=== PATIENT | female | born 1995 | race Caucasian/White ===

== ENCOUNTER → 2017-10-25 06:55 | Outpatient (CLI) | payer OTHER, SELFPAY ==
[2017-10-25 07:52] LABS: Absolute Lymphocyte Count 2.44 X10^3/ul (0.83-4.51); Absolute Neutrophil Count 2.8 X10^3/uL (2.0-7.7); Basophil# 0.02 X10^3/uL; Basophil% 0.3 % (0-1); Eosinophil# 0.13 X10^3/uL; Eosinophils% 2.2 % (0-5); Hematocrit 44.2 % (37-47); Hemoglobin 15.1 g/dl (12.0-15.0); Lymphocyte # 2.44 X10^3/ul (4.0); Lymphocyte % 40.9 % (19-41); Mean Corp Hgb Conc 34.2 g/gl (32-36); Mean Corpuscular Hgb 31.7 pg (27.0-32.0); Mean Corpuscular Volume 92.9 fL (81-99); Monocyte# 0.54 X10^3/uL; Monocyte% 9.1 % (0-10); Neutrophil # 2.82 X10^3/uL (2.7-7.7); Neutrophil % 47.3 % (47-70); Platelet Count 221 K/mm3 (150-450); RBC Distribution Width CV 12.4 % (11.6-14.6); RBC Distribution Width SD 41.9 fl (35.1-43.9); Red Blood Count 4.76 M/mm3 (4.2-5.4)
[2017-10-25 07:58] LABS: ALB/GLOB Ratio 1.3 RATIO (0.9-2.4); AST(SGOT) 15 U/L (15-37); Alanine Aminotransfer ALT/SGPT 19 U/L (13-56); Albumin, Serum 3.9 g/dL (3.2-5.0); Alkaline Phosphatase 95 U/L (45-117); Anion Gap 7 (5-15); BUN 8 mg/dL (7-18); BUN/Creat Ratio 13.2 RATIO (10-20); Calcium,Total 8.7 mg/dL (8.5-10.1); Chloride 106 mmol/L (98-107); Creatinine, Serum 0.61 mg/dL (0.55-1.02); EST Glomerular Filtration Rate 134 mL/min (>60); Est Glom Filt Rate - Afr Amer 162 mL/min (>60); Globulin 3.1 g/dL (2.2-4.2); Glucose 80 mg/dL (74-106); Potassium 3.5 mmol/L (3.5-5.1); Sodium Level 139 mmol/L (136-145); Thyroid Stim Hormone (TSH) 2.79 uIU/mL (0.358-3.74)
[2017-10-25 08:02] LABS: POSITIVE COUNT NO; POSITIVE DIFFERENTIAL NO; POSITIVE MORPHOLOGY NO
[2017-10-25 08:16] LABS: Microalbumin:Creatinine Ratio 7.6 mg/g CRE (<30 mg/g CRE)
== END ==
PROVIDERS: Family Provider Family Medicine; PCP Family Medicine; Visit Provider Family Medicine
DX: N20.0 Calculus of kidney (principal)
CPT/HCPCS: 36415; 80053; 82043; 82570; 84443; 85025

== ENCOUNTER → 2018-01-03 07:48 | Outpatient (CLI) | payer OTHER, SELFPAY ==
[2018-01-03 09:10] LABS: Glucose GTT- Fasting 78 mg/dL (74-106)
[2018-01-03 09:56] LABS: Glucose GTT-30 minutes 160 mg/dL (110-170)
[2018-01-03 10:02] LABS: Glucose GTT- 1 Hour 152 mg/dL (120-170)
[2018-01-03 10:52] LABS: Glucose GTT- 2 Hour 96 mg/dL (70-120)
[2018-01-03 12:27] LABS: Glucose GTT- 3 Hour 91 mg/dL (74-106)
[2018-01-03 12:56] LABS: Glucose GTT- 4 Hour 38 mg/dL (74-106)
== END ==
PROVIDERS: Family Provider Family Medicine; PCP Family Medicine; Visit Provider Family Medicine
DX: R55 Syncope and collapse (principal)
CPT/HCPCS: 36415; 82951; 82952

== ENCOUNTER → 2018-03-01 08:52 | Outpatient (CLI) | payer OTHER, SELFPAY | PROVIDERS: Family Provider Family Medicine; PCP Family Medicine; Visit Provider Family Medicine | DX: Z12.4 Encounter for screening for malignant neoplasm of cervix (principal) | CPT/HCPCS: 87491; 87591; 87623; 87624; 88175; G0145 ==

== ENCOUNTER → 2020-11-11 12:29 | Outpatient (CLI) | payer OTHER, SELFPAY ==
[2020-11-11 10:02] VITALS: BMI 22.3
[2020-11-11 18:24] LABS: Amphetamine Urine VISTA NEGATIVE (<1000 ng/mL); Barbiturate Urine VISTA NEGATIVE (< 200 ng/mL); Benzodiazepine Urine VISTA NEGATIVE (< 200 ng/mL); Cocaine Urine VISTA NEGATIVE (< 300 ng/mL); Ecstacy Urine VISTA NEGATIVE (< 500 ng/mL); Methadone Urine VISTA NEGATIVE (< 300 ng/mL); PCP Urine VISTA NEGATIVE (< 25 ng/mL); THC Urine VISTA NEGATIVE (< 50 ng/mL); Vista UDS pH Range 6
[2020-11-15 16:09] LABS: Chlamydia By Nucleic Acid AMP Negative (Negative)
[2020-11-15 16:24] LABS: Gonococcus By Nucleic Acid AMP Negative (Negative)
[2020-11-17 20:24] LABS: HPV Reflexed? NOT INDICATED
== END ==
PROVIDERS: PCP Family Medicine; Referring Provider Obstetrics & Gynecology; Visit Provider Obstetrics & Gynecology
DX: Z34.00 Encounter for supervision of normal first pregnancy, unspecified trimester (principal); Z12.4 Encounter for screening for malignant neoplasm of cervix
CPT/HCPCS: 80307; 87077; 87086; 87088; 87186; 87491; 87591; 88175; G0145

== ENCOUNTER → 2020-12-10 11:00 | Outpatient (CLI) | payer MEDICAID, SELFPAY ==
[2020-12-10 10:54] VITALS: BMI 22.1
[2020-12-10 11:32] LABS: Absolute Lymphocyte Count 1.35 X10^3/uL (0.83-4.51); Absolute Neutrophil Count 4.6 X10^3/uL (2.0-7.7); Basophil# 0.02 X10^3/uL; Basophil% 0.3 % (0-1); Eosinophil# 0.09 X10^3/uL; Eosinophils% 1.4 % (0-5); Hematocrit 35.7 % (37-47); Hemoglobin 12.6 g/dL (12.0-15.0); Lymphocyte # 1.35 X10^3/ul (0.83-4.51); Lymphocyte % 20.7 % (19-41); Mean Corp Hgb Conc 35.3 g/dL (32-36); Mean Corpuscular Hgb 32.2 pg (27.0-32.0); Mean Corpuscular Volume 91.3 fL (81-99); Mean Platelet Vol. 11.6 fl (6.2-12.0); Monocyte# 0.43 X10^3/uL; Monocyte% 6.6 % (0-10); NRBC Flagged by Analyzer 0 % (0-5); Neutrophil # 4.59 X10^3/uL (2.7-7.7); Neutrophil % 70.2 % (47-70); Platelet Count 203 K/mm3 (150-450); RBC Distribution Width CV 11.4 % (11.6-14.6); RBC Distribution Width SD 37.7 fl (35.1-43.9); Red Blood Count 3.91 M/mm3 (4.2-5.4); White Blood Count 6.5 K/mm3 (4.4-11.0)
[2020-12-10 12:20] LABS: NATERA MAILED SPECIMEN
[2020-12-10 12:48] LABS: HIV - WCH Non-Reactive (Nonreactive); Hepatitis B Surface Antigen Non-Reactive (Nonreactive); Hepatitis C Antibody Non-Reactive (Nonreactive); Rubella IgG Reactive (Nonreactive); Syphilis Antibodies Non-reactive
[2020-12-12 07:48] LABS: V-Zoster IgG (Immunity) 730 index (Immune >165)
== END ==
PROVIDERS: PCP Family Medicine; Referring Provider Obstetrics & Gynecology; Visit Provider Obstetrics & Gynecology
DX: Z34.81 Encounter for supervision of other normal pregnancy, first trimester (principal)
CPT/HCPCS: 36415; 85025; 86703; 86762; 86780; 86787; 86803; 86850; 86900; 86901; 87340

== ENCOUNTER → 2021-01-05 | Outpatient (CLI) | payer MEDICAID, SELFPAY ==
[2021-01-05 10:24] VITALS: BMI 22.1
== END | disposition home or self-care (01) ==
PROVIDERS: PCP Family Medicine; Visit Provider Obstetrics & Gynecology
DX: O26.899 Other specified pregnancy related conditions, unspecified trimester (principal); R10.2 Pelvic and perineal pain; Z3A.00 Weeks of gestation of pregnancy not specified
CPT/HCPCS: 87086; 87088

== ENCOUNTER → 2021-03-16 16:49 | Outpatient (CLI) | payer MEDICAID, SELFPAY ==
--- NOTE | 2021-03-16 16:51 | US_ITS ---
STUDY: SECOND AND THIRD TRIMESTER OBSTETRICAL ULTRASOUND REASON FOR EXAM: Female, 25 years old growth -- FU of left ovarian cyst TECHNIQUE: Transabdominal PRIOR ULTRASOUND: None. FINDINGS: There is a single intrauterine fetus. The fetus is in a cephalic presentation. There is demonstrated cardiac activity with a heart rate of 128 bpm. There is a normal amniotic fluid volume. The largest amniotic fluid pocket measures 7.3 cm. The amniotic fluid index (REANNA) is 17.4 cm. The placenta is posterior and not low-lying. There are Grade 0 placental changes. The cervix measures 3.5 cm in length. The bilateral adnexal regions are normal. No suspicious ovarian cyst is seen. BPD: 7.3 cm = 29 weeks, 1 day(s) HC: 26.6 cm = 29 weeks, 1 day(s) AC: 23.5 cm = 27 weeks, 6 day(s) FL: 5 cm = 27 weeks, 0 day(s) EGA by ultrasound: 28 weeks 2 day(s) CHAVEZ by ultrasound: 06/06/2021 Estimated weight: 1108 grams Weight percentile: 95% US/OB Limited With Biometrics IMPRESSION: Living intrauterine with estimated gestational age of 28 weeks and 2 days. No suspicious ovarian cyst is seen. Electronically Signed: Huang Schmid MD at 21:43 EDT Tel , Service support ,
== END ==
PROVIDERS: PCP Family Medicine; Visit Provider Obstetrics & Gynecology
DX: N83.202 Unspecified ovarian cyst, left side (principal)
CPT/HCPCS: 76816

== ENCOUNTER → 2021-04-01 11:17 | Outpatient (CLI) | payer MEDICAID, SELFPAY ==
[2021-04-01 12:19] LABS: Absolute Lymphocyte Count 1.33 X10^3/uL (0.83-4.51); Absolute Neutrophil Count 6.1 X10^3/uL (2.0-7.7); Basophil# 0.04 X10^3/uL; Basophil% 0.5 % (0-1); Eosinophil# 0.07 X10^3/uL; Eosinophils% 0.8 % (0-5); Hematocrit 35.4 % (37-47); Hemoglobin 12.1 g/dL (12.0-15.0); Lymphocyte # 1.33 X10^3/ul (0.83-4.51); Lymphocyte % 15.5 % (19-41); Mean Corp Hgb Conc 34.2 g/dL (32-36); Mean Corpuscular Hgb 32.5 pg (27.0-32.0); Mean Corpuscular Volume 95.2 fL (81-99); Mean Platelet Vol. 11.8 fl (6.2-12.0); Monocyte# 0.71 X10^3/uL; Monocyte% 8.3 % (0-10); NRBC Flagged by Analyzer 0 % (0-5); Neutrophil # 6.08 X10^3/uL (2.7-7.7); Neutrophil % 70.9 % (47-70); Platelet Count 166 K/mm3 (150-450); RBC Distribution Width SD 41.5 fl (35.1-43.9); Red Blood Count 3.72 M/mm3 (4.2-5.4); White Blood Count 8.6 K/mm3 (4.4-11.0)
[2021-04-01 12:47] LABS: Glucose Challenge Gest 1H 50g 134 mg/dL (70-140)
== END ==
PROVIDERS: PCP Family Medicine; Visit Provider Obstetrics & Gynecology
DX: Z34.01 Encounter for supervision of normal first pregnancy, first trimester (principal)
CPT/HCPCS: 36415; 82950; 85025

== ENCOUNTER 2021-04-16 23:00 | Outpatient (CLI) | payer MEDICAID, SELFPAY ==
[2021-04-16 23:16] VITALS: BP 118/58; PULSE 100; TEMP 36.7
[2021-04-16 23:21] VITALS: PULSE 80; O2SAT 97
[2021-04-16 23:23] VITALS: BMI 26.0
[2021-04-17] MEDS: Terbutaline 1 MG/ML Vial 0.25 MG SC (01:15)
[2021-04-17 01:29] VITALS: BP 107/64; PULSE 70; O2SAT 98
[2021-04-17 01:30] VITALS: TEMP 36.4
[2021-04-17 01:32] LABS: ROM Internal Control Test YES-OK TO RESULT pt. (Internal QC); ROM Patient Test Negative (Negative)
[2021-04-17 01:52] LABS: Fetal Fibronectin Negative
--- NOTE | 2021-04-18 08:18 | OB.TRI.PN_ITS ---
Progress Notes Date of Service: 04/17/21 Progress Note: Patient presents for triage evaluation secondary to threatened labor and ctx possible ROM FHT: 140 Moderate variability reactive no decelerations category I tracing [place]: irregular Contractions Assessment and plan: false labor no cervilca change Reactive NST, reassuring maternal and status patient discharged to home to follow-up as scheduled. See problem list details for additional plan information. Laboratory Studies: Laboratory Tests 04/17/21 04/17/21 Range/Units 00:55 00:10 Vag Amniotic Fld Detect Negative (Negative) Fibronectin Negative Charges/Coding Procedures Urinary/Genital 52xxx-59xxx: [id number] non-stress test Interp
== END 2021-04-17 01:42 | disposition home or self-care (01) ==
LOC: WPOUT 23:12 → WP 23:14
PROVIDERS: PCP Family Medicine; Visit Provider Obstetrics & Gynecology
DX: O47.9 False labor, unspecified (principal); Z3A.00 Weeks of gestation of pregnancy not specified
CPT/HCPCS: 59025; 59050; 82731; 84112; 96372; 99218; G0378

== ENCOUNTER → 2021-04-29 14:57 | Outpatient (CLI) | payer MEDICAID, SELFPAY ==
[2021-04-29 15:21] LABS: ROM Internal Control Test YES-OK TO RESULT pt. (Internal QC); ROM Patient Test Negative (Negative)
== END ==
PROVIDERS: PCP Family Medicine; Visit Provider Obstetrics & Gynecology
DX: O42.90 Premature rupture of membranes, unspecified as to length of time between rupture and onset of labor, unspecified weeks of gestation (principal); Z3A.00 Weeks of gestation of pregnancy not specified
CPT/HCPCS: 84112

== ENCOUNTER 2021-04-30 14:24 | Outpatient (CLI) | payer MEDICAID, SELFPAY ==
[2021-04-30 14:39] VITALS: BMI 26.2
[2021-04-30 14:51] VITALS: BP 103/57; PULSE 88; TEMP 36.8; O2SAT 98
[2021-04-30] MEDS: Betamethasone/Betamethasone 30 MG/5 ML Vial 12 MG IM (15:18)
== END 2021-04-30 15:20 | disposition home or self-care (01) ==
LOC: WPOUT 14:38 → WP 14:38
PROVIDERS: PCP Family Medicine; Visit Provider Obstetrics & Gynecology
DX: O60.00 Preterm labor without delivery, unspecified trimester (principal); Z3A.00 Weeks of gestation of pregnancy not specified
CPT/HCPCS: 96372; 99218; G0378; J0702

== ENCOUNTER 2021-05-14 12:34 | Inpatient (IN) | payer MEDICAID, SELFPAY ==
[2021-05-14] VITALS (37 sets, daily range): BP systolic 92–119; BP diastolic 50–75; PULSE 63–88; TEMP 36.4–37.3; O2SAT 91–100; BMI 27.1
--- NOTE | 2021-05-14 12:51 | HP.PCM.OB_ITS ---
Documented by User: Dr. Peyton Laurent, 05/14/21 13:03 HPI - General General Date of Admission: 05/14/21 HPI Narrative TORIE ROSE, is a 25 F who presents Maternal Data Information CHAVEZ Calculator Estimated Delivery Date Method Current WG Current Estimate 06/22/21 LMP (Certain) 34w 3d PFSH PFSH Medical History ADD (attention deficit disorder) GBS (group B Streptococcus carrier), +RV culture, currently Left ovarian cyst Seasonal affective disorder Home Medications prenat.vits,leonardo,tcl-bjlv-baatc 1 tab PO DAILY 11/01/20 [History Last Taken 05/13/21 06:00] valacyclovir 500 mg tablet 500 mg PO DAILY PRN PRN 11/01/20 [History Last Taken 05/13/21 19:00] Allergy/AdvReac Type Severity Reaction Status Date / Time No Known Allergies Allergy Verified 05/14/21 12:37 Family History Grandfather Diabetes Grandfather CAD (coronary artery disease) Surgical History Bilateral congenital pwkrci-dlvorzm-einsp reflux Social History adopted: No household members: significant other and family current occupational status: unemployed Smoking Status: Never smoker alcohol intake: former details: none in substance use type: does not use and other details: Had vaped but stopped. History 1 Elective abortions Hx Para 0 Spontaneous abortions Hx # Term Pregnancies Ectopic pregnancies Hx # Pregnancies Multiple births # of living children Visit Details Expected Delivery Route/Plan Labor Preferences- CB/BF classes: encouraged labor support person: Brandt labor intervention preferences: no specific pain management options preferred: epidural cut cord/dad catch: no : yes PP control planned: pill discussed possible routes of delivery and associated risks: [] special requests: [] Plans covid status: counseled regarding risk of covid in vs vaccination and declined vaccination flu vaccine: declined tdap vaccine: rhogam: considering LARC form signed: [] movement and labor precautions reviewed. Problem list reviewed and updated with the most current plan of care details and appropriate orders placed. Relevant counseling for the gestational age provided. Continue routine care and follow up unless otherwise noted in visit notes/problem list details OB Flowsheet Initial Weight: 120 lb Date -?-?-?-?-?-?-?-?-?-?-?-?- EGA Weight BP Urine Prot -?-?-?-?-?-?-?-?-?-?-?-?- Glucose FHR FuHt Pres Dilation -?-?-?-?-?-?-?-?-?-?-?-?- Effaced St Visit Note 12/10/20 -?-?-?-?-?-?-?-?-?-?-?-?- 12w 2d 117 lb 8 oz (-2 lb 8 oz) 90/62 Negative -?-?-?-?-?-?-?-?-?--?-?-?- Negative 158 -?-?-?-?-?-?-?-?-?-?-?-?- GP - no cramping or bleeding. Anatomy scan ordered. 01/05/21 -?-?-?-?-?-?-?-?-?-?-?-?- 16w 0d 120 lb 8 oz (+8 oz) 100/62 Negative -?-?-?-?-?-?-?-?-?-?-?-?- Negative 150 -?-?-?-?-?-?-?-?-?-?-?-?- GP - No LOF or V B. Intermittent cramping that's worse with movement- discussed round ligament pain. Anatomy 01/24. 01/21/21 -?-?-?-?-?-?-?-?-?-?-?-?- 18w 2d 120 lb (+0 oz) 120/80 Negative -?-?-?-?-?-?-?-?-?-?-?-?- Negative 150 -?-?-?-?-?-?-?-?-?-?-?-?- GP - work in for perineal irritation. Triamcinolone ointment sent to pharmacy. Discussed vulvar hygiene measures 02/04/21 -?-?-?-?-?-?-?-?-?-?-?-?- 20w 2d 125 lb (+5 lb) 110/60 Negative -?-?-?-?-?-?-?-?-?-?--?-?- Negative 140 20 -?-?-?-?-?-?-?-?-?-?-?-?- SM- no vb crampi ng us scheduled declined afp 02/28/21 -?-?-?-?-?-?-?-?-?-?-?-?- 23w 5d 129 lb 8 oz (+9 lb 8 oz) 90/60 Negative -?-?-?-?-?-?-?-?-?-?-?-?- Negative 135 24 -?-?-?-?-?-?-?-?-?-?-?-?- GP - no LOF, VB, DFM, ctx. GCT next visit. 04/01/21 -?-?-?-?-?-?-?-?-?-?-?-?- 28w 2d 139 lb 4 oz (+19 lb 4 oz) 100/60 Negative -?-?-?-?-?-?-?-?-?-?-?-?- Negative 140 28 -?-?-?-?-?-?-?-?-?-?-?-?- SM- no vb lof go od fm no reuglar ctx 04/15/21 -?-?-?-?-?-?-?-?-?-?-?-?- 30w 2d 136 lb (+16 lb) 100/60 Negative -?-?-?-?-?-?-?-?-?-?-?-?- Negative 140 30 -?-?-?-?-?-?-?-?-?-?-?-?- SM- no vb lof go od fm no reuglar ctx. increased anxiety, encouraged counseling and will start celexa 04/29/21 -?-?-?-?-?-?-?-?-?-?-?-?- 32w 2d 140 lb (+20 lb) 110/66 Negative -?-?-?-?-?-?-?-?-?-?-?-?- Negative 140 34 1 -?-?-?-?-?-?-?-?-?-?-?-?- 80 -1 SM- no vb questionable lof having some contractions. still 1 cm but thinner, recommend BMZ course. reviewed ptl precautions. 05/13/21 -?-?-?-?-?-?-?-?-?-?-?-?- 34w 2d 140 lb 6 oz (+20 lb 6 oz) 106/62 Negative -?-?-?-?-?-?-?-?-?-?--?-?- Negative 140 35 -?-?-?-?-?-?-?-?-?-?-?-?- SM- no vb lof go od fm no reuglar ctx just occasional 05/14/21 -?-?-?-?-?-?-?-?-?-?-?-?- 34w 3d 143 lb 4.807 oz (+23 lb 4.807 oz) 109/69 117/63 112/62 106/57 102/62 119/75 95/50 99/68 114/71 109/59 116/71 92/53 109/63 -?-?-?-?-?-?-?-?-?-?-?-?- -?-?-?-?-?-?-?-?-?-?-?-?- NST FHR Rate Baby A Baseline: 135 Variability:: Moderate Accelerations:: 15 x 15 Decelerations:: None NST Reactive:: Yes FHR Category:: Category I ROS Constitutional Constitutional: Denies change in weight, fatigue, fever(s), headache(s), poor appetite or weakness Eyes Eyes: Denies blurry vision, change in vision, seeing flashes or spots in vision ENT HEENT: Denies dizziness, headache(s), loss taste/smell or sore throat Cardiovascular Cardiovascular: Denies chest pain, dizziness, dyspnea, irregular heart rhythm, leg edema, palpitations, rapid heart rate or vomiting Respiratory/Chest Respiratory/Chest: Denies chest tightness, cough, dyspnea or breast pain Gastrointestinal Gastrointestinal: Denies abdominal pain, anorexia, constipation, cramping, diarrhea, hemorrhoids, vomiting or weight changes Genitourinary Genitourinary: Denies dysuria, flank pain, genital lesions, genital pain, urinary frequency or urinary urgency Musculoskeletal Musculoskeletal: Denies back pain, difficulty walking, joint pain, limited range of motion, muscle cramps or numbness Integumentary Integumentary: Denies lesions or unusual bruising Neurologic Neurologic: Denies abnormal movements, abnormal speech, dizziness, numbness, seizure-like activity or syncope Psychiatric Psychiatric: Denies anxiety, behavioral changes, change in appetite, change in libido, cognitive impairment, confusion, depression, difficulty concentrating, hallucinations or suicidal thoughts Endocrine Endocrinology: Denies excessive sweating, polydipsia or polyuria Hematologic/Lymphatic Hematologic/Lymphatic: Denies easy bleeding, easy bruising or lymphadenopathy Allergic/Immunologic Allergic/Immunologic: Denies itchy eyes, lip swelling, seasonal rhinorrhea, rhinitis, throat swelling, tongue swelling, eczemia, wheezing or asthma Vital Signs Vital Signs Vital Signs: 05/14/21 12:20 05/14/21 12:21 Temperature 97.8 F Temperature Source Temporal Pulse Rate 85 Blood Pressure 109/69 BP Systolic 109 BP Diastolic 69 Pulse Ox 98 Weight Weight: 143 lb 4.807 oz Body Mass Index (BMI) 27.1 Physical Exam Const alert, oriented x3, no apparent distress and healthy appearing General Appearance: cooperative; Negative for anxious HEENT normocephalic Face and Sinus: normal facial exam Eyes EOMs intact bilaterally and no scleral icterus General Eye: normal appearance of both eyes Neck full ROM and supple Lymph Lymphatic: no lymphadenopathy noted Chest Chest: abnormal inspection of the chest Resp normal respiratory effort Effort and Inspection: able to speak in complete sentences Cardio regular rate GI soft to palpation and non-tender Inspection: gravid Palpation: soft; Negative for tender external exam normal Manual OB Exam: dilated /-1 Amniotic Fluid: ROM+plus Back/Spine no CVA tenderness Extremity normal to inspection, full ROM and no clubbing, cyanosis or edema General Extremity: Negative for calf tenderness or edema Skin Lesions: no lesions Rashes: no rashes Psych mental status grossly normal Labs Labs Labs: Blood Type O POSITIVE Antibody Screen NEGATIVE Hct 35.9 % (37-47) L Hgb 12.2 g/dL (12.0-15.0) Obstetrics US Syphilis Total Ab Non-reactive VZV IgG Antibody 730 index (Immune >165) Rubella IgG Antibody Reactive (Nonreactive) Hep Bs Antigen Non-Reactive (Nonreactive) Neisseria gonorrhoeae DNA (HALLIE) Negative (Negative) HIV 1&2 Antibody Non-Reactive (Nonreactive) Glucose 1 Hr 50 gm 134 mg/dL (70-140) Assessment & Plan (1) premature rupture of membranes: (2) GBS (group B Streptococcus carrier), +RV culture, currently : COMMENT: antibiotics during labor (3) Supervision of normal first : QUALIFIERS: Trimester: first trimester Qualified Code(s): Z34.01 - Encounter for supervision of normal first , first trimester COMMENT: PRR CHAVEZ 06/22/21, wai Mendoza BF:Brandt([place]) (4) : QUALIFIERS: Weeks of gestation: 34 weeks Qualified Code(s): Z3A.34 - 34 weeks gestation of COMMENT: NIPT low risk declined carrier and afp screen. anatomy nl (5) Genital herpes: QUALIFIERS: Herpes simplex infection site: vulvovaginitis Qualified Code(s): A60.04 - Herpesviral vulvovaginitis COMMENT: valtrex daily (6) Anxiety: COMMENT: celexa ordered. counseling encouraged. PLAN: Patient presents for augmentation of labor due to PROM at 34 weeks, status post 2 doses of celestone lat week., plan management for with pitocin Pain management: plans epidural. GBS positive- starting abx. Management of any complications: pt taking acyclovir for herpes prophylaxis GC/CT culture ordered Discussed with NICU physician pets and pet supplies salesperson. baby will go to special care nursery. I have reviewed the [facility] and made any clinically relevant updates. Documented by User: Dr. Libby Ho MD 05/14/21 22:26 HPI - General General Date of Admission: 05/14/21 Maternal Data Information CHAVEZ Calculator Estimated Delivery Date Method Current WG Current Estimate 06/22/21 LMP (Certain) 34w 3d PFSH PFSH Medical History ADD (attention deficit disorder) GBS (group B Streptococcus carrier), +RV culture, currently Left ovarian cyst Seasonal affective disorder Home Medications prenat.vits,leonardo,nlu-uxnw-ccirs 1 tab PO DAILY 11/01/20 [History Last Taken 05/13/21 06:00] valacyclovir 500 mg tablet 500 mg PO DAILY PRN PRN 11/01/20 [History Last Taken 05/13/21 19:00] Allergy/AdvReac Type Severity Reaction Status Date / Time No Known Allergies Allergy Verified 05/14/21 12:37 Family History Grandfather Diabetes Grandfather CAD (coronary artery disease) Surgical History Bilateral congenital yhwory-lavbjhb-ushcl reflux Social History adopted: No household members: significant other and family current occupational status: unemployed Smoking Status: Never smoker alcohol intake: former details: none in substance use type: does not use and other details: Had vaped but stopped. History 1 Elective abortions Hx Para 0 Spontaneous abortions Hx # Term Pregnancies Ectopic pregnancies Hx # Pregnancies Multiple births # of living children Visit Details Expected Delivery Route/Plan Labor Preferences- CB/BF classes: encouraged labor support person: Brandt labor intervention preferences: no specific pain management options preferred: epidural cut cord/dad catch: no : yes PP control planned: pill discussed possible routes of delivery and associated risks: [] special requests: [] Plans covid status: counseled regarding risk of covid in vs vaccination and declined vaccination flu vaccine: declined tdap vaccine: rhogam: considering LARC form signed: [] movement and labor precautions reviewed. Problem list reviewed and updated with the most current plan of care details and appropriate orders placed. Relevant counseling for the gestational age provided. Continue routine care and follow up unless otherwise noted in visit notes/problem list details OB Flowsheet Initial Weight: 120 lb Date -?-?-?-?-?-?-?-?-?-?-?-?- EGA Weight BP Urine Prot -?-?-?-?-?-?--?-?-?-?-?-?- Glucose FHR FuHt Pres Dilation -?-?-?-?-?-?-?-?-?-?-?-?- Effaced St Visit Note 12/10/20 -?-?-?-?-?-?-?-?-?-?-?-?- 12w 2d 117 lb 8 oz (-2 lb 8 oz) 90/62 Negative -?-?-?-?-?-?-?-?-?-?-?-?- Negative 158 -?-?-?-?-?-?-?-?-?-?-?-?- GP - no cramping or bleeding. Anatomy scan ordered. 01/05/21 -?-?-?-?-?-?-?-?-?-?-?-?- 16w 0d 120 lb 8 oz (+8 oz) 100/62 Negative -?-?-?-?-?-?-?-?-?-?-?-?- Negative 150 -?-?-?-?-?-?-?-?-?-?-?-?- GP - No LOF or V B. Intermittent cramping that's worse with movement- discussed round ligament pain. Anatomy 01/24. 01/21/21 -?--?-?-?-?-?-?-?-?-?-?-?- 18w 2d 120 lb (+0 oz) 120/80 Negative -?-?-?-?-?-?-?-?-?-?-?-?- Negative 150 -?-?-?-?-?-?-?-?-?-?-?-?- GP - work in for perineal irritation. Triamcinolone ointment sent to pharmacy. Discussed vulvar hygiene measures 02/04/21 -?-?-?-?-?-?-?-?-?-?-?-?- 20w 2d 125 lb (+5 lb) 110/60 Negative -?-?-?-?-?-?-?-?-?-?-?-?- Negative 140 20 -?-?-?-?-?-?-?-?-?-?-?-?- SM- no vb crampi ng us scheduled declined afp 02/28/21 -?-?-?-?-?-?-?-?-?-?-?-?- 23w 5d 129 lb 8 oz (+9 lb 8 oz) 90/60 Negative -?-?-?-?-?-?-?-?-?-?-?-?- Negative 135 24 -?-?-?-?-?-?-?-?-?-?-?-?- GP - no LOF, VB, DFM, ctx. GCT next visit. 04/01/21 -?-?-?-?-?-?-?-?-?-?-?-?- 28w 2d 139 lb 4 oz (+19 lb 4 oz) 100/60 Negative -?-?-?-?-?-?-?-?-?-?-?-?- Negative 140 28 -?-?-?-?-?-?-?-?-?-?-?-?- SM- no vb lof go od fm no reuglar ctx 04/15/21 -?-?-?-?-?-?-?-?-?-?-?-?- 30w 2d 136 lb (+16 lb) 100/60 Negative -?-?-?-?-?-?-?-?-?-?-?-?- Negative 140 30 -?--?-?-?-?-?-?-?-?-?-?-?- SM- no vb lof go od fm no reuglar ctx. increased anxiety, encouraged counseling and will start celexa 04/29/21 -?-?-?-?-?-?-?-?-?-?-?-?- 32w 2d 140 lb (+20 lb) 110/66 Negative -?-?-?-?-?-?-?-?-?-?-?-?- Negative 140 34 1 -?-?-?-?-?-?-?-?-?-?-?-?- 80 -1 SM- no vb questionable lof having some contractions. still 1 cm but thinner, recommend BMZ course. reviewed ptl precautions. 05/13/21 -?-?-?-?-?-?-?-?-?-?-?-?- 34w 2d 140 lb 6 oz (+20 lb 6 oz) 106/62 Negative -?-?-?-?-?-?-?-?-?-?-?-?- Negative 140 35 -?-?-?-?-?-?-?-?-?-?-?-?- SM- no vb lof go od fm no reuglar ctx just occasional 05/14/21 -?-?-?-?-?-?-?-?-?-?-?-?- 34w 3d 143 lb 4.807 oz (+23 lb 4.807 oz) 109/69 117/63 112/62 106/57 102/62 119/75 95/50 99/68 114/71 109/59 116/71 92/53 109/63 -?-?-?-?-?-?-?-?-?-?-?-?- -?-?-?-?-?-?-?-?-?-?-?-?- Labs Labs Labs: Blood Type O POSITIVE Antibody Screen NEGATIVE Hct 35.9 % (37-47) L Hgb 12.2 g/dL (12.0-15.0) Obstetrics US Syphilis Total Ab Non-reactive VZV IgG Antibody 730 index (Immune >165) Rubella IgG Antibody Reactive (Nonreactive) Hep Bs Antigen Non-Reactive (Nonreactive) Neisseria gonorrhoeae DNA (HALLIE) Negative (Negative) HIV 1&2 Antibody Non-Reactive (Nonreactive) Glucose 1 Hr 50 gm 134 mg/dL (70-140)
[2021-05-14] MEDS: Lactated Ringers 1,000 ML 50 ML IV (13:25)
[2021-05-14 13:54] LABS: Absolute Lymphocyte Count 1.31 X10^3/uL (0.83-4.51); Absolute Neutrophil Count 7.9 X10^3/uL (2.0-7.7); Basophil# 0.03 X10^3/uL; Basophil% 0.3 % (0-1); Eosinophil# 0.06 X10^3/uL; Eosinophils% 0.6 % (0-5); Hematocrit 35.9 % (37-47); Hemoglobin 12.2 g/dL (12.0-15.0); Lymphocyte # 1.31 X10^3/ul (0.83-4.51); Lymphocyte % 12.7 % (19-41); Mean Corpuscular Hgb 31.6 pg (27.0-32.0); Mean Platelet Vol. 12.1 fl (6.2-12.0); Monocyte# 0.91 X10^3/uL; Monocyte% 8.8 % (0-10); NRBC Flagged by Analyzer 0 % (0-5); Neutrophil # 7.88 X10^3/uL (2.7-7.7); Neutrophil % 76.1 % (47-70); Platelet Count 150 K/mm3 (150-450); RBC Distribution Width CV 12.2 % (11.6-14.6); RBC Distribution Width SD 41.5 fl (35.1-43.9); Red Blood Count 3.86 M/mm3 (4.2-5.4); White Blood Count 10.4 K/mm3 (4.4-11.0)
[2021-05-14] MEDS: Lactated Ringers 500 ML 999 ML IV (15:41)
[2021-05-14] MEDS: Ondansetron 4 MG/2 ML Vial IV ×2 (15:49→23:11)
[2021-05-14] MEDS: fentaNYL-bupivacaine (epidural) 100 ML BAG EPIDURAL ×2 (16:40→20:42)
[2021-05-14] MEDS: Oxytocin 30 units/NS 500 ml 30 UNITS/500 ML IV.SOLN IV (17:30)
[2021-05-14] MEDS: Penicillin G 3,000,000 Units 50 ML 100 UNITS IV ×2 (17:49→21:52)
--- NOTE | 2021-05-14 22:26 | OP.PCM_ITS ---
Assessment & Plan (1) premature rupture of membranes: (2) contractions: COMMENT: /-1 BMZ 04/29 and 04/30 (3) Left ovarian cyst: COMMENT: repeat US in 4 weeks. will need medicaid form if possible surgical removal at time of delivery (4) GBS (group B Streptococcus carrier), +RV culture, currently : COMMENT: antibiotics during labor (5) Supervision of normal first : QUALIFIERS: Trimester: first trimester Qualified Code(s): Z34.01 - Encounter for supervision of normal first , first trimester COMMENT: PRR CHAVEZ 06/22/21, wai Mendoza BF:Brandt([place]) (6) : QUALIFIERS: Weeks of gestation: 34 weeks Qualified Code(s): Z3A.34 - 34 weeks gestation of COMMENT: NIPT low risk declined carrier and afp screen. anatomy nl (7) Genital herpes: QUALIFIERS: Herpes simplex infection site: vulvovaginitis Qualified Code(s): A60.04 - Herpesviral vulvovaginitis COMMENT: valtrex daily (8) Anxiety: COMMENT: celexa ordered. counseling encouraged. (9) Normal vaginal delivery: COMMENT: 34 PPROM wai Barron SM Maternal Data Information CHAVEZ Calculator Estimated Delivery Date Method Current WG Current Estimate 06/22/21 LMP (Certain) 34w 3d Vaginal Delivery Operative Information Date of Procedure: 05/14/21 Pre-Operative Diagnosis: IAL Post-Operative Diagnosis: same Surgery / Procedure Performed: Spontaneous Vaginal Delivery Type of Anesthesia: Epidural Special Medications: none Estimated Blood Loss: 100 Fluids Replaced: crystalloid Findings Description of Procedure: Patient began pushing and delivered the head in the CRISTINA presentation. The head was delivered atraumatically . The anterior and posterior shoulders delivered without complication followed by the rest of the and the was placed on the maternal abdomen. Delayed cord clamping was employed for approximately 60 seconds. Cord was clamped and cut and gentle traction was applied to the cord and the placenta delivered spontaneously immediately following it was noted to be intact with three-vessel cord. The perineum and vagina were inspected and noted to have no laceration. EBL was 100 cc. Patient and infant tolerated delivery well. Presentation: CRISTINA Amniotic Membrane Rupture Type: Spontaneous Amniotic Fluid Description: Clear Placental Delivery Description: Spontaneous Placenta Disposition: Sent to Pathology Cord Vessel Description: 3 Vessels Cord Entanglement: None A Gender: Male Delayed Cord Clamping: Yes Post Vaginal Delivery Medications Given After Delivery: IV Pitocin Episiotomy Description: None Laceration: None Complication Complications: None Procedures Urinary/Genital 52xxx-59xxx: 02012 Vaginal Delivery+ Care([facility])
--- NOTE | 2021-05-14 22:27 | PCM.DC ---
Discharge Instructions Diet Discharge Diet: No restrictions Activity Discharge Activity: Return to Normal Activity, May Not Drive (while taking narcotic pain medications.) and May Shower May resume sexual activity in: 4-6 weeks Dressing / Incision Call your doctor if your incision/area has: Continuous Slow Oozing, Sudden Increased Bleeding, Increased Pain/ Swelling, Increased Redness and Foul Smelling Discharge Follow Up Care Please Follow Up With: Libby Ho MD When: Call [phone] to make an appointment with your doctor in 6 weeks. If you had elevated blood pressure or 4th degree laceration, you will need to be seen in 2 weeks. Test Results: Test results from this visit will be discussed in further detail at your follow-up appointment, if applicable. Discharge Plan Admission Admit Date/Time: 05/14/21 12:34 Primary Reason for Your Visit: vaginal delivery Attending Provider: Peyton Laurent Primary Care Provider: Yung Da Silva Discharge Orders/Prescriptions Prescriptions: New naproxen 250 MG tablet 250 - 500 mg PO Q8H PRN PRN (Reason: MILD PAIN) Qty: 30 RF: 1 Continued valacyclovir [Valtrex] 500 mg tablet 500 mg PO DAILY PRN PRN (Reason: herpes outbreak) RF: 0 prenat.vits,leonardo,dce-krwm-mtoza Tablet 1 tab PO DAILY RF: 0 Referrals / Follow Up: Yung Da Silva MD [Primary Care Provider] - Disposition Disposition (needs filled in before D/C Order can be placed): Home, Self Care
[2021-05-14] MEDS: Oxytocin 30 units/NS 500 ml 30 UNITS/500 ML IV.SOLN 334 UNITS IV (22:46)
[2021-05-14] MEDS: Naproxen 500 MG Tablet PO (23:24)
--- NOTE | 2021-05-14 23:32 | NURSING ---
Addendum entered by Leila Farfan 05/14/21 23:33: indwelling urinary catheter Original Note: indwelling catheter removed by Dr. Ho at [id number]
[2021-05-15] VITALS (20 sets, daily range): BP systolic 90–107; BP diastolic 48–61; PULSE 65–86; RESP 14–18; TEMP 36.2–37; O2SAT 97–99
[2021-05-15] MEDS: Naproxen 500 MG Tablet PO ×2 (08:23→19:53)
--- NOTE | 2021-05-15 11:12 | PN.OBGYN_ITS ---
Documented by User: Dr. Peyton Laurent, 05/15/21 11:14 Subjective Subjective Patient doing well without complaints. Tolerating PO. Ambulating and voiding without difficulty. Feeding well. Denies chest pain, shortness of breath, calf pain/swelling, fevers, chills, lightheadedness. Objective Data Objective Data Vital Signs: Vital Signs Temp Pulse Resp BP Pulse Ox 97.1 F L 71 14 105/61 98 05/15/21 08:15 05/15/21 08:15 05/15/21 08:15 05/15/21 08:15 05/15/21 03:50 Oxygen Delivery Method Room Air Weight: 143 lb 4.807 oz Body Mass Index (BMI) 27.1 Intake & Output: Intake and Output for Last 24 Hours 05/13/21 05/14/21 05/15/21 23:59 23:59 23:59 Intake Total 2073.77 / 2073.77 333 / 333 Output Total 600 / 600 900 / 900 Balance 1473.77 / 1473.77 -567 / -567 Lab / Micro Data Result Diagrams: 05/14/21 13:25 Labs: Laboratory Results - last 24 hr 05/14/21 13:25: WBC 10.4, RBC 3.86 L, Hgb 12.2, Hct 35.9 L, MCV 93.0, MCH 31.6, MCHC 34.0, RDW Std Deviation 41.5, RDW Coeff of Antonio 12.2, Plt Count 150, MPV 12.1 H, Immature Gran % (Auto) 1.500 H, Neut % (Auto) 76.1 H, Lymph % (Auto) 12.7 L, [place] % (Auto) 8.8, Eos % (Auto) 0.6, Baso % (Auto) 0.3, Absolute Neuts (auto) 7.9 H, Absolute Lymphs (auto) 1.31, Nucleated RBC % 0 05/14/21 13:25: Blood Type O POSITIVE, Antibody Screen NEGATIVE Micro: Microbiology 05/14/21 13:45 Nasal Secretion SARS-CoV-2 Antigen (Rapid) - Final ROS Constitutional Constitutional: Denies chills, fatigue, fever(s), poor appetite or weakness Eyes Eyes: Denies blurry vision, change in vision, seeing flashes or spots in vision ENT HEENT: Denies dizziness, headache(s), loss taste/smell or sore throat Cardiovascular Cardiovascular: Denies chest pain, dizziness, dyspnea, irregular heart rhythm, palpitations or rapid heart rate Respiratory/Chest Respiratory/Chest: Denies chest tightness, cough, dyspnea or breast pain Gastrointestinal Gastrointestinal: Denies abdominal pain, constipation or vomiting Genitourinary Genitourinary: Denies dysuria or flank pain Musculoskeletal Musculoskeletal: Denies difficulty walking, joint pain, limited range of motion or numbness Neurologic Neurologic: Denies abnormal movements, abnormal speech, dizziness, numbness, se izure-like activity or syncope Psychiatric Psychiatric: Denies anxiety, behavioral changes, change in appetite, confusion, depression or suicidal thoughts Physical Exam Const alert, oriented x3 and no apparent distress General Appearance: cooperative and comfortable Resp normal respiratory effort Cardio regular rate GI normal to inspection, nondistended, normoactive bowel sounds GI Narrative: uterus is firm below umbilicus Palpation: soft Bimanual Exam - Adnexa, Other: Negative for cul-de-sac fullness Back/Spine no CVA tenderness and thoraco-lumbar ROM normal Extremity normal to inspection, no clubbing, cyanosis or edema, no calf tenderness and no pedal edema Psych mental status grossly normal, thought process normal, cooperative, affect cooper l, speech normal, activity/motor behavior normal, denies homicidal ideation and denies suicidal ideation Assessment & Plan (1) Normal vaginal delivery: COMMENT: [facility] (2) premature rupture of membranes: (3) contractions: COMMENT: /-1 BMZ 04/29 and 04/30 (4) Left ovarian cyst: COMMENT: repeat US in 4 weeks. will need medicaid form if possible surgical removal at time of delivery (5) GBS (group B Streptococcus carrier), +RV culture, currently : COMMENT: antibiotics during labor (6) Supervision of normal first : QUALIFIERS: Trimester: first trimester Qualified Code(s): Z34.01 - Encounter for supervision of normal first , first trimester COMMENT: PRR CHAVEZ 06/22/21, wai Mendoza BF:Leena) (7) : QUALIFIERS: Weeks of gestation: 34 weeks Qualified Code(s): Z3A.34 - 34 weeks gestation of COMMENT: NIPT low risk declined carrier and afp screen. anatomy nl (8) Genital herpes: QUALIFIERS: Herpes simplex infection site: vulvovaginitis Qualified Code(s): A60.04 - Herpesviral vulvovaginitis COMMENT: valtrex daily (9) Anxiety: COMMENT: celexa ordered. counseling encouraged. PLAN: s/p PPD #1- delivered 22:40 last night. 1. routine post delivery care 2. breast feeding- support given 3. rh positive 4. rubella immune 5. plan for dc to home tomorrow Documented by User: Dr. Libby Ho MD 05/16/21 08:17 Objective Data Lab / Micro Data Result Diagrams: 05/14/21 13:25
[2021-05-15] MEDS: Acetaminophen 500 MG Tablet 1000 MG PO (15:22)
[2021-05-16 02:41] VITALS: BP 105/63; PULSE 80; RESP 18
[2021-05-16] MEDS: Naproxen 500 MG Tablet PO (08:03)
[2021-05-16 08:12] VITALS: BP 102/63; PULSE 66; RESP 16; TEMP 36.9
--- NOTE | 2021-05-16 08:17 | PCM.PN.OB ---
Subjective Subjective Patient doing well without complaints. Tolerating PO. Ambulating and voiding without difficulty. infant feeding well. Denies chest pain, shortness of breath, calf pain/swelling, fevers, chills, lightheadedness. Objective Data Objective Data Vital Signs: Vital Signs Temp Pulse Resp BP Pulse Ox 98.4 F 66 16 102/63 98 05/16/21 08:12 05/16/21 08:12 05/16/21 08:12 05/16/21 08:12 05/15/21 03:50 Oxygen Delivery Method Room Air Weight: 143 lb 4.807 oz Body Mass Index (BMI) 27.1 Intake & Output: Intake and Output for Last 24 Hours 05/14/21 05/15/21 05/16/21 23:59 23:59 23:59 Intake Total 2073.77 / 2073.77 333 / 333 Output Total 600 / 600 900 / 900 Balance 1473.77 / 1473.77 -567 / -567 Lab / Micro Data Result Diagrams: 05/14/21 13:25 Micro: Microbiology 05/14/21 13:45 Nasal Secretion SARS-CoV-2 Antigen (Rapid) - Final ROS Constitutional Constitutional: Reports systems reviewed and no addt'l complaints, except as documented Cardiovascular Cardiovascular: Reports systems reviewed and no addt'l complaints, except as documented Respiratory/Chest Respiratory/Chest: Reports systems reviewed and no addt'l complaints, except as documented Gastrointestinal Gastrointestinal: Reports systems reviewed and no addt'l complaints, except as documented Physical Exam Const alert, oriented x3 and no apparent distress HEENT Head and Scalp: atraumatic Resp normal respiratory effort GI soft to palpation and non-tender Bimanual Exam - Vag & Uterus: uterus non-tender Uterus Palpation: uterus fundus firm (below Umbilicus) Assessment & Plan (1) Normal vaginal delivery: COMMENT: 34 PPROM boy [place] [facility] (2) premature rupture of membranes: (3) GBS (group B Streptococcus carrier), +RV culture, currently : COMMENT: antibiotics during labor (4) Supervision of normal first : QUALIFIERS: Trimester: first trimester Qualified Code(s): Z34.01 - Encounter for supervision of normal first , first trimester COMMENT: PRR CHAVEZ 06/22/21, wai Mendoza BF:Brandt([place]) (5) : QUALIFIERS: Weeks of gestation: 34 weeks Qualified Code(s): Z3A.34 - 34 weeks gestation of COMMENT: NIPT low risk declined carrier and afp screen. anatomy nl PLAN: s/p PPD # 2 1. routine post delivery care 2. breast feeding- support given 3. rh positive 4. rubella immune
--- NOTE | 2021-05-17 14:14 | CASEMGMT ---
Addendum entered by Yissel Mcpherson 05/17/21 15:02: SW did ask MOB if is interested in counseling, she is not interested at this time. Also, ERIKA does have a two year old as well, this is his second child. He coparents the two year old with his mother, and it is an amicable situation. [place] Original Note: Social Work Assessment Labor and Delivery Unit Date/Time of referral: 05/15/21, 6:01am Referred by: Dr. Thompson Date/Time of intervention: 05/17/21, 1:30pm Reason for Referral: anxiety, baby transferred to special care nursery History obtained from: MOB, FOB Household composition: MOB, FOB Brandt, baby Anderson. JESSIKA's father lives in an apartment in the home Patient's parent/guardian status: MOB and FOB are guardians Medical History: MOB: ADD, GBS, left ovarian cyst, Seasonal Affective Disorder, Anxiety. Baby: Prematurity, respiratory distress, Apgars 8&9 at 1 and 5 minutes. Baby born [birth year], 2244, 2925grams. Educational Status: MOB has taken some college courses and plans to go back, studying social work. FOB graduated high school Financial Situation: They report no financial concerns. FOB works, MOB plans to eventually go back to school Supplies: They report to have all needed supplies including 2 cribs, bassinet, car seat, clothing, diapers, wipes, bottles, formula, breast pump. MOB plans to breastfeed Childcare/Caregivers: MOB, FOB, great grandma on MOB's side, paternal grandparents, great grandma, and step aunt(ERIKA's step sister) Transportation: FOB reports they have 5 cars Programs/Agencies Involved/Children Services/Legal Issues: None Behavioral Health issues: Substance use history: FOB and MOB both deny Safety concerns: None Mental Health History: FOB reports none. MOB reports anxiety. She has been managing okay. She was in counseling in high school, not since. She was on Wellbutrin at the start of the and went off of it due to being . She went on Celexa during the third trimester but starting cramping. She read potential side effects for patients and decided to go off of it. She plans to go back on the Celexa. Dr. Thompson prescribes it. Overall however she reports to be managing w/the anxiety. Family/Social Stressors: They report none Support systems: Family as mentioned above who will help as caretakers Resources: Depression and Anxiety/Shaken Baby/Safe Sleeping/Help Me Grow/Counseling Resources/[facility] Resources: Information given and reviewed on all of these topics. SW did point out 24 hour Counseling Center Hotline if needed Assessment: SW spoke w/FOB and MOB, both open and engaged in conversation. MOB about to go into SCN to feed the baby. We talked about having a baby in SCN, neither parent seems stressed or overly worried about it, seem appropriate to the situation. Plan: Baby to go home w/parents at discharge. SW did let parents know if they have any concerns while at the hospital to ask to speak w/SW, MOB states understanding. Otherwise, no further social service needs requested or indicated at this time. [place]
== END 2021-05-16 10:41 | disposition home or self-care (01) | DRG 560 ==
LOC: WP 12:34
PROVIDERS: Admitting Provider Obstetrics & Gynecology; PCP Family Medicine; Visit Provider Obstetrics & Gynecology
DX: O42.913 Preterm premature rupture of membranes, unspecified as to length of time between rupture and onset of labor, third trimester (principal); Z37.0 Single live birth; O98.32 Other infections with a predominantly sexual mode of transmission complicating childbirth; A60.04 Herpesviral vulvovaginitis; O99.820 Streptococcus B carrier state complicating pregnancy; Z3A.34 34 weeks gestation of pregnancy; B00.9 Herpesviral infection, unspecified; N83.202 Unspecified ovarian cyst, left side; Z82.49 Family history of ischemic heart disease and other diseases of the circulatory system; Z83.3 Family history of diabetes mellitus; Q62.7 Congenital vesico-uretero-renal reflux
CPT/HCPCS: 59025; 59050; 85025; 86850; 86900; 86901; 87426; 99218; J7120; G0378; J2405

== ENCOUNTER 2022-09-24 22:38 | Emergency (ER) | payer MEDICAID, SELFPAY ==
[2022-09-24 22:39] VITALS: BP 106/75; PULSE 80; RESP 16; TEMP 36.6; O2SAT 98; BMI 26.8
--- NOTE | 2022-09-24 22:54 | CT_ITS ---
EXAM: CT ABDOMEN AND PELVIS WITH INTRAVENOUS CONTRAST CLINICAL INDICATION: RLQ pain TECHNIQUE: Helically acquired images were obtained of the abdomen and pelvis with intravenous contrast. This CT exam was performed using one or more of the following dose reduction techniques: automated exposure control, adjustment of the mA and/or kV according to patient size, and/or use of iterative reconstruction technique. This report was created using [employer] report generation technology. CONTRAST: IV 100mL Isovue-370 COMPARISON: 03/16/2015 FINDINGS: LOWER THORAX: Unremarkable. Lung bases are clear. No cardiomegaly. No significant pericardial effusion. ABDOMEN: LIVER: Unremarkable. Homogeneous. No focal mass. GALLBLADDER AND BILE DUCTS: Unremarkable. No calcified gallstones. No gallbladder distention or wall edema. No intra- or extrahepatic biliary ductal dilation. PANCREAS: Unremarkable. No focal cystic or solid mass. SPLEEN: Unremarkable. Normal size without focal cystic or solid mass. ADRENALS: Unremarkable. No nodules. KIDNEYS AND URETERS: Unremarkable. Normal renal size and position. No hydronephrosis. STOMACH AND BOWEL: Unremarkable. No stomach or bowel distention. No focal inflammatory change. PELVIS: APPENDIX: The appendix is normal. BLADDER: Unremarkable. REPRODUCTIVE: Unremarkable as visualized. No mass. ABDOMEN and PELVIS: INTRAPERITONEAL SPACE: Irregular right ovarian cystic lesion measuring 3.9 x 1.9 cm, which may indicate a hemorrhagic cyst. Small amount of free fluid in the pelvis. No free air. BONES/JOINTS: Unremarkable. No suspicious lytic or blastic abnormality. SOFT TISSUES: Unremarkable. No discrete abdominal or pelvic wall hernia. VASCULATURE: Unremarkable. Abdominal aorta is non-dilated. LYMPH NODES: Unremarkable. No enlarged lymph nodes. CT/Abdomen/Pelvis W IV Cont ONLY IMPRESSION: Irregular right ovarian cystic lesion measuring 3.9 x 1.9 cm, which may indicate a hemorrhagic cyst. Small amount of free fluid in the pelvis. Electronically Signed: Usman Bee MD at 0:12 EDT ,
--- NOTE | 2022-09-24 22:55 | ED.VIS.GI ---
HPI HPI - GI History of Present Illness Chief Complaint: Abd Pain Informant: patient and parent Narrative Narrative: Patient presents with right lower quadrant pain. She states the symptoms started similar 5 days to a week ago. It was more off and on. It would hurt if she moved her bowels or if she urinated. But urine does not burn. There is no odor to it. She has not had fevers or chills. She really does not have back or flank pain. She has had kidney stone once before but that was sharp pain in her back. She has not noted blood in the urine this time. She has no history of any intra-abdominal surgery. She is G1, P1 with normal vaginal delivery. Last menstrual cycle was about 3 to 4 weeks ago. She is due in the next few days. She has had no vaginal discharge or bleeding. I also reviewed some of her past charting and she does have a history of an ovarian cyst in the past. [facility] Medical History ADD (attention deficit disorder) GBS (group B Streptococcus carrier), +RV culture, currently Left ovarian cyst Seasonal affective disorder Home Medications sertraline 50 mg tablet (Zoloft) 50 mg PO DAILY #90 tabs 11/14/21 [Rx Last Taken Unknown] norgestimate 0.25 mg-ethinyl estradiol 35 mcg tablet (Sprintec (28)) 1 tab PO DAILY #84 tabs 07/18/22 [Rx Last Taken Unknown] naproxen 500 mg tablet 500 mg PO BID #14 tabs 09/25/22 [Rx Last Taken Unknown] Allergy/AdvReac Type Severity Reaction Status Date / Time No Known Allergies Allergy Verified 09/24/22 22:41 Family History Grandfather Diabetes Grandfather CAD (coronary artery disease) Surgical History Bilateral congenital aslfwt-iwdteyb-uloqd reflux Social History adopted: No household members: significant other and family current occupational status: unemployed Smoking Status: Current every day smoker tobacco type: e-cigarettes alcohol intake: former details: none in substance use type: does not use and other details: Had vaped but stopped. caffeine: No what type of physical activity do you participate in: other details: pilates frequency: 5-6 times per week ROS ROS ED Constitutional Constitutional ED: Denies chills or fever(s) Cardiovascular Cardiovascular: Denies chest pain or palpitations Respiratory/Chest Respiratory/Chest: Denies cough or dyspnea Gastrointestinal Gastrointestinal: Reports abdominal pain, nausea and other Details: Has been moving her bowels normally. No difficulty eating. ; Denies constipation, diarrhea, melena or vomiting Genitourinary Genitourinary ED: Denies dysuria or hematuria Musculoskeletal Musculoskeletal: Denies back pain or neck pain Integumentary Denies rash Neurologic Neurologic: Denies headache(s) Endocrine Endocrinology: Denies polydipsia or polyuria Allergic/Immunologic Allergic/Immunologic ED: Denies urticaria EXAM Physical Exam Narrative Exam Narrative: Patient awake alert no acute distress. She is sitting comfortably in bed. HEENT shows moist mucous membranes no intraoral rash. Neck is supple Lungs are clear bilaterally saturations are normal at 98% on room air. Heart is regular without murmur gallop or rub. Peripheral pulses are normal upper and lower extremities both sides. Abdomen is soft. Bowel sounds are normal. There is no distention. There are some prior stretch diaz. No rashes. She does have some mild tenderness down low in the right lower quadrant. No rebound or guarding. No mass. No right upper quadrant tenderness. : No CVA tenderness. No notable suprapubic tenderness. Extremities show no rash. Neurologically she is awake alert appropriate with no gross deficits. Const Vital Signs: 09/24/22 22:39 Temperature 98 F Temperature Source Temporal Pulse Rate 80 Respiratory Rate 16 Blood Pressure 106/75 Blood Pressure Mean 85 Pulse Ox 98 Oxygen Delivery Method Room Air MDM MDM MDM Narrative Medical decision making narrative: My independent interpretation the patient's CT does not show any acute obstruction. I do not see a kidney stone or hydronephrosis. No inflammation near the appendix. There does appear to be a ovarian cyst. Final reading does she see the cyst but they also see some free fluid. They can see the appendix and it is normal. CBC is normal including white count hemoglobin and platelets. Electrolytes are normal. Liver function test are normal. is negative. Patient will go home. She is comfortable. I explained the findings. I explained reasons to return. We will get her on Naprosyn she can follow-up with her primary physician or MANAGER OF PATIENT. Lab Data Attestation: I reviewed the patient's lab results. Labs: Laboratory Results - last 24 hr 09/24/22 09/24/22 09/24/22 22:55 22:55 22:55 WBC 6.3 RBC 4.49 Hgb 14.3 Hct 41.6 MCV 92.7 MCH 31.8 MCHC 34.4 RDW Std Deviation 38.9 RDW Coeff of Antonio 11.6 Plt Count 225 MPV 12.2 H Immature Gran % (Auto) 0.500 Neut % (Auto) 51.0 Lymph % (Auto) 36.1 [place] % (Auto) 10.4 H Eos % (Auto) 1.4 Baso % (Auto) 0.6 Absolute Neuts (auto) 3.2 Absolute Lymphs (auto) 2.28 Nucleated RBC % 0 Sodium 137 Potassium 3.9 Chloride 105 Carbon Dioxide 27.0 Anion Gap 5 BUN 10 Creatinine 0.65 Estim Creat Clear Calc 99.84 Est GFR (MDRD) Af Amer 143 Est GFR (MDRD) Non-Af 119 BUN/Creatinine Ratio 15.5 Glucose 84 Calcium 9.4 Total Bilirubin 0.30 AST 13 L ALT 20 Alkaline Phosphatase 101 Total Protein 7.3 Albumin 3.9 Globulin 3.4 Albumin/Globulin Ratio 1.1 Serum , Qual NEGATIVE Urine Color Urine Clarity Urine pH Ur Specific Stuart Urine Protein Urine Glucose (UA) Urine Ketones Urine Occult Blood Urine Nitrite Urine Bilirubin Urine Urobilinogen Ur Leukocyte Esterase Urine RBC Urine WBC Ur Squamous Epith Cells Urine Bacteria Urine Mucus 09/24/22 22:55 WBC RBC Hgb Hct MCV MCH MCHC RDW Std Deviation RDW Coeff of Antonio Plt Count MPV Immature Gran % (Auto) Neut % (Auto) Lymph % (Auto) [place] % (Auto) Eos % (Auto) Baso % (Auto) Absolute Neuts (auto) Absolute Lymphs (auto) Nucleated RBC % Sodium Potassium Chloride Carbon Dioxide Anion Gap BUN Creatinine Estim Creat Clear Calc Est GFR (MDRD) Af Amer Est GFR (MDRD) Non-Af BUN/Creatinine Ratio Glucose Calcium Total Bilirubin AST ALT Alkaline Phosphatase Total Protein Albumin Globulin Albumin/Globulin Ratio Serum , Qual Urine Color Yellow Urine Clarity Clear Urine pH 8.0 Ur Specific Stuart 1.010 Urine Protein Negative Urine Glucose (UA) Normal Urine Ketones Negative Urine Occult Blood Negative Urine Nitrite Negative Urine Bilirubin Negative Urine Urobilinogen Normal Ur Leukocyte Esterase Negative Urine RBC 0 SEEN Urine WBC 0 SEEN Ur Squamous Epith Cells 0-5 SEEN Urine Bacteria 0 SEEN Urine Mucus 0 SEEN Radiography Diagnostic Testing: Clinical Impression(s) from Imaging Studies Abdomen/Pelvis CT 09/24/22 22:54 IMPRESSION: Irregular right ovarian cystic lesion measuring 3.9 x 1.9 cm, which may indicate a hemorrhagic cyst. Small amount of free fluid in the pelvis. Electronically Signed: Usman Bee MD at 0:12 EDT , Discharge Plan Triage Chief Complaint: Abd Pain ED Provider: Rick Cobb Dx/Rx/DC Orders Clinical Impression: Hemorrhagic cyst of right ovary, Acute right lower quadrant pain Instructions: ED Ovarian Cyst Prescriptions: New naproxen 500 mg tablet 500 mg PO BID Qty: 14 0RF No Action norgestimate-ethinyl estradiol [Sprintec (28)] 0.25-35 mg-mcg tablet 1 tab PO DAILY Qty: 84 4RF sertraline [Zoloft] 50 mg tablet 50 mg PO DAILY Qty: 90 2RF Primary Care Provider: Care Physician,No Primary Referrals: Yung Da Silva MD [Med Staff - Machine Tool Mechanic] - 3-5 Days if not improving Disposition Disposition: Home, Self Care
[2022-09-24 23:00] LABS: Bacteria 0 SEEN /hpf (None Seen); Mucous, Urine 0 SEEN /hpf (<or=2+); Red Blood Cells-Urine 0 SEEN /hpf (0-5); White Blood Cells 0 SEEN /hpf (0-5)
[2022-09-24 23:02] LABS: Absolute Lymphocyte Count 2.28 X10^3/uL (0.83-4.51); Absolute Neutrophil Count 3.2 X10^3/uL (2.0-7.7); Basophil# 0.04 X10^3/uL; Basophil% 0.6 % (0-1); Eosinophil# 0.09 X10^3/uL; Eosinophils% 1.4 % (0-5); Hematocrit 41.6 % (37-47); Hemoglobin 14.3 g/dL (12.0-15.0); Lymphocyte # 2.28 X10^3/ul (0.83-4.51); Lymphocyte % 36.1 % (19-41); Mean Corp Hgb Conc 34.4 g/dL (32-36); Mean Corpuscular Hgb 31.8 pg (27.0-32.0); Mean Corpuscular Volume 92.7 fL (81-99); Mean Platelet Vol. 12.2 fl (6.2-12.0); Monocyte# 0.66 X10^3/uL; Monocyte% 10.4 % (0-10); NRBC Flagged by Analyzer 0 % (0-5); Neutrophil # 3.22 X10^3/uL (2.7-7.7); Platelet Count 225 K/mm3 (150-450); RBC Distribution Width CV 11.6 % (11.6-14.6); RBC Distribution Width SD 38.9 fl (35.1-43.9); Red Blood Count 4.49 M/mm3 (4.2-5.4); White Blood Count 6.3 K/mm3 (4.4-11.0)
[2022-09-24 23:05] LABS: Glucose, Dipstick Normal (Normal); Ketone-Dipstick Negative (Negative); Leukocyte Esterase-Dipstick Negative /ul (Negative); Nitrite-Dipstick Negative (Negative); Occult Blood-Urine Negative /ul (Negative); Protein-Dipstick Negative (Negative); Urine Bilirubin Dipstick Negative (Negative); Urine Urobilinogen Normal (Normal)
[2022-09-24] MEDS: Ketorolac 15 MG/ML Vial IV (23:05)
[2022-09-24] MEDS: 0.9% Normal Saline 1,000 ML 1000 ML IV (23:05)
[2022-09-24] MEDS: Ondansetron 4 MG/2 ML Vial IV (23:05)
[2022-09-24 23:27] LABS: Internal QC Validated? YES +Cl - CLEAR BKGD; Pregnancy, Serum, hCG Quali. NEGATIVE Negative
[2022-09-24 23:29] LABS: ALB/GLOB Ratio 1.1 RATIO (0.9-2.4); AST(SGOT) 13 U/L (15-37); Alanine Aminotransfer ALT/SGPT 20 U/L (13-56); Albumin, Serum 3.9 g/dL (3.2-5.0); Alkaline Phosphatase 101 U/L (45-117); Anion Gap 5 (5-15); BUN 10 mg/dL (7-18); BUN/Creat Ratio 15.5 RATIO (10-20); Calcium,Total 9.4 mg/dL (8.5-10.1); Chloride 105 mmol/L (98-107); Creatinine, Serum 0.65 mg/dL (0.55-1.02); EST Glomerular Filtration Rate 119 mL/min (>60); Est Glom Filt Rate - Afr Amer 143 mL/min (>60); Estimated Creatinine Clearance 99.84 ml/min; Globulin 3.4 g/dL (2.2-4.2); Glucose 84 mg/dL (74-106); Potassium 3.9 mmol/L (3.5-5.1); Protein, Total 7.3 g/dL (6.4-8.2); Sodium Level 137 mmol/L (136-145)
[2022-09-24 23:30] LABS: Color, Urine Yellow (Yellow); Urine Clarity Clear (Clear)
[2022-09-24 23:32] LABS: Squamous Epithelial Cells - UA 0-5 SEEN /hpf (5-10)
== END 2022-09-25 00:50 | disposition home or self-care (01) ==
PROVIDERS: Emergency Provider Emergency Medicine; Visit Provider Emergency Medicine
DX: N83.201 Unspecified ovarian cyst, right side (principal); R31.9 Hematuria, unspecified; F17.210 Nicotine dependence, cigarettes, uncomplicated; R10.31 Right lower quadrant pain
CPT/HCPCS: 74177; 80053; 81001; 84703; 85025; 96361; 96374; 96375; 99282; J7030; Q9967; A4216; J2405

== ENCOUNTER → 2022-11-02 | Outpatient (CLI) | payer MEDICAID, SELFPAY ==
--- NOTE | 2022-11-02 12:09 | US_ITS ---
STUDY: FIRST TRIMESTER OBSTETRICAL ULTRASOUND REASON FOR EXAM: Female, 27 years old pelvic pain/Rule out ectopic -- HcG 563 LMP: 10/03/2022 TECHNIQUE: Transvaginal TECHNICAL QUALITY: Adequate. PRIOR ULTRASOUND: None. FINDINGS: There is no demonstrated intrauterine gestational sac. There is no demonstrated yolk sac. The placenta is non-visualized. The uterus measures 7.7 x 5.2 x 4.4 cm. There is no demonstrated uterine fibroid. The cervix is closed. Endometrium measures 1.9 cm with multiple cystic changes. There is a cystic area posterior left of the uterus measuring 1.2 x 1.8 x 1.2 cm. There is no associated hyperemia or free fluid. The right ovary measures 2.8 x 3.0 x 1.8 cm. There is no right ovarian cyst. There is no visualized right adnexal mass or complex lesion. The left ovary measures 2.3 x 1.5 x 1.5 cm. There is no left ovarian cyst. There is no visualized left adnexal mass or complex lesion. There is no fluid in the cul de sac. US/Transvaginal w/Preg US IMPRESSION: No sonographic evidence of intra or extrauterine gestation. There is a thickened heterogeneous endometrium with multiple cysts No suspicious adnexal mass or free fluid Recommend serial beta-hCG studies and follow-up ultrasound in 7-10 days for reevaluation. Electronically Signed: Chico Locke MD at 13:58 EDT ,
[2022-11-02 12:49] LABS: hCG Titer Quant., Serum 563 mIU/mL (1-3)
== END | disposition home or self-care (01) ==
LOC: OPUS 11:57
PROVIDERS: Referring Provider Nurse Practitioner Women's Health; Visit Provider Nurse Practitioner Women's Health
DX: O26.891 Other specified pregnancy related conditions, first trimester (principal); R10.2 Pelvic and perineal pain; N91.2 Amenorrhea, unspecified
CPT/HCPCS: 36415; 76817; 84702

== ENCOUNTER → 2022-11-10 | Outpatient (CLI) | payer MEDICAID, SELFPAY | END | disposition home or self-care (01) | LOC: US 14:42 | PROVIDERS: Referring Provider Nurse Practitioner Women's Health; Visit Provider Nurse Practitioner Women's Health | DX: Z00.00 Encounter for general adult medical examination without abnormal findings (principal) ==

== ENCOUNTER → 2022-11-10 | Outpatient (CLI) | payer MEDICAID, SELFPAY ==
--- NOTE | 2022-11-10 14:40 | US_ITS ---
INDICATION: viability EXAMINATION: US OB Transvaginal TECHNIQUE: Transvaginal (for optimal evaluation of the adnexa) pelvic ultrasound was performed. Grayscale, spectral waveform, and color flow Doppler evaluation of the adnexa. COMPARISON: Pelvic ultrasound from 11/02/2022 FINDINGS: Uterus measures 7.8 x 4.6 x 5.1 cm. Intrauterine gestational sac at fundal endometrium contains a yolk sac but no pole or cardiac activity detected at this time. Mean gestational sac diameter of 9.4 mm yields estimated gestational age of 5 weeks 5 days, CHAVEZ 07/08/2023. Clinical age of 5 weeks 3 days based on LMP of 10/03/2022. Gestational sac shape subjectively within normal limits. Trace amount of fluid within endometrium adjacent to gestational sac. Cervix is closed. Trace free pelvic fluid. No adnexal mass identified. Bilateral ovaries demonstrate normal color Doppler flow (spectral waveform analysis not performed). Right ovary measures 3.5 x 2 x 3.2 cm and left ovary 2.4 x 1.3 x 1.7 cm. Heterogeneous, hypoechoic right ovarian cyst measures 2.6 x 1.6 x 2.5 cm. US/Transvaginal w/Preg US IMPRESSION: 1. Single early intrauterine with no pole or cardiac activity detected at this time. Small perigestational hematoma noted. Classified as of uncertain viability. Recommend repeat ultrasound in 7-14 days to reassess. 2. Small hemorrhagic and/or involuting right ovarian corpus luteum cyst with trace free pelvic fluid. Electronically Signed: Brien Wakefield MD at 22:15 EDT ,
== END | disposition home or self-care (01) ==
LOC: US 14:36
PROVIDERS: Referring Provider Nurse Practitioner Women's Health; Visit Provider Nurse Practitioner Women's Health
DX: O26.891 Other specified pregnancy related conditions, first trimester (principal); N91.2 Amenorrhea, unspecified; R10.2 Pelvic and perineal pain; Z3A.00 Weeks of gestation of pregnancy not specified; O99.891 Other specified diseases and conditions complicating pregnancy
CPT/HCPCS: 76817

== ENCOUNTER 2022-11-14 15:59 | Emergency (ER) | payer MEDICAID, SELFPAY ==
[2022-11-14 15:59] VITALS: BP 119/76; PULSE 106; RESP 20; TEMP 36.7; O2SAT 100; BMI 34.4
--- NOTE | 2022-11-14 16:29 | US_ITS ---
STUDY: FIRST TRIMESTER OBSTETRICAL ULTRASOUND REASON FOR EXAM: Female, 27 years old. vaginal bleeding TECHNIQUE: Transvaginal US was obtained to better visualized the ovaries. TECHNICAL QUALITY: Adequate. PRIOR ULTRASOUND: 11.10.22. FINDINGS: There is no demonstrated intrauterine gestational sac. There is no demonstrated yolk sac. The placenta is non-visualized. There is no demonstrated embryo ( pole). The estimated gestation age (EGA) by LMP is 6 weeks, 0 days. The estimated date of delivery (CHAVEZ) by LMP is 1.30.24. The uterus measures 8.3x4.6 cm. There is no demonstrated uterine fibroid. The cervix is closed. 16 mm endometrial stripe. The right ovary measures 3.3x3.1 cm. There is no right ovarian cyst. There is no visualized right adnexal mass or complex lesion. The left ovary measures 2.8x1.8 cm. There is no left ovarian cyst. There is no visualized left adnexal mass or complex lesion. There is a moderate amount of fluid in the cul de sac. US/Transvaginal w/Preg US IMPRESSION: There is NO intrauterine There is a moderate amount of fluid in the cul de sac. There are no adnexal masses. Electronically Signed: Usman Bianchi MD at 20:12 EDT ,
--- NOTE | 2022-11-14 16:30 | ED.VIS.FEGU ---
HPI HPI - Female History of Present Illness Chief Complaint: Female C/O Narrative Narrative: 27-year-old female, G2, P1 at approximately 5 weeks gestation presents with vaginal bleeding and pelvic cramping that began after she had taken for pills that she got online. She relates history that she went to her [facility] at around 3 weeks gestation and found out that she was . States she was prescribed vitamins. She watched a [employer] video and ordered pills online that she thinks were from [place] where she took 1 pill yesterday, and 4 pills today. She states as soon as the hormone pills dissolved in her mouth, she began having cramping. She started heavy vaginal bleeding and passing large clots. She is nauseated and started vomiting. She presents because of the pain in her pelvis and the heavy vaginal bleeding. [facility] Medical History ADD (attention deficit disorder) GBS (group B Streptococcus carrier), +RV culture, currently Seasonal affective disorder Home Medications sertraline 50 mg tablet (Zoloft) 50 mg PO DAILY #90 tabs 11/14/21 [Rx Last Taken Unknown] [id number] fum 28 mg iron-folic acid 1 mg-omg3 200 mg capsule (C-José Manuel DHA) 1 cap PO DAILY #90 caps 11/02/22 [Rx Last Taken Unknown] Allergy/AdvReac Type Severity Reaction Status Date / Time No Known Allergies Allergy Verified 11/14/22 16:03 Family History Grandfather Diabetes Grandfather CAD (coronary artery disease) Surgical History Bilateral congenital ddszgk-ztlwlnd-kyirt reflux Social History adopted: No household members: significant other and family current occupational status: unemployed Smoking Status: Current every day smoker tobacco type: e-cigarettes alcohol intake: former details: none in substance use type: does not use and other details: Had vaped but stopped. caffeine: No what type of physical activity do you participate in: other details: pilates frequency: 5-6 times per week ROS ROS ED ROS Narrative Constitutional: No fever, no chills. HEENT: No sore throat. No neck pain. No loss of vision. No rhinorrhea. Cardiovascular: No chest pain. No palpitations. No pedal edema. Respiratory: No cough, no shortness of breath. Abdominal: No abdominal pain. Positive nausea and vomiting Genitourinary: No dysuria. No hematuria. Heavy vaginal bleeding. Passing large clots and pelvic cramping. Musculoskeletal: No myalgias. No arthralgias. Neurologic: No headaches. No dizziness. No lightheadedness. Skin: No rash. No change in color. Psychiatric: No depression. No anxiety. EXAM Physical Exam Narrative Exam Narrative: Afebrile. Vital signs noted. HEENT: Normocephalic. Atraumatic. PERRL, EOMI. Neck soft and supple. No point tenderness or step off. Cardiovascular: Regular rate and rhythm. No murmurs, rubs, or gallops appreciated. Respiratory: No tachypnea. Lungs clear to auscultation bilaterally. Gastrointestinal: Abdomen soft, nontender, with normoactive bowel sounds. No rebound or guarding. Genitourinary: Chaperoned pelvic examination reveals small amount of old blood in the vaginal vault, no active hemorrhaging. Neurological: Awake. Alert. Nonfocal, nonlateralizing. Skin: No rash. Normal color. No pallor. Musculoskeletal: No pedal edema. Full range of motion extremities. Psychiatric: Tearful on examination. Const Vital Signs: 11/14/22 15:59 11/14/22 15:59 11/14/22 17:59 Temperature 98.1 F Temperature Source Temporal Pulse Rate 106 H 78 Respiratory Rate 20 H 14 Blood Pressure 119/76 110/72 Blood Pressure Mean 90 84 Pulse Ox 100 99 Oxygen Delivery Method Room Air 11/14/22 20:45 Temperature Temperature Source Pulse Rate Respiratory Rate 18 Blood Pressure Blood Pressure Mean Pulse Ox Oxygen Delivery Method Room Air MDM MDM MDM Narrative Medical decision making narrative: I do feel that the Thaddeus is experiencing hormone induced miscarriage. She takes that she took for Cytotec pills, and began having bleeding and cramping. I do feel that ultrasound imaging is indicated along with laboratory work to see if she may have had an ectopic initially. I reviewed her laboratory work, she has a normal white count/slightly elevated 11.6 which I think is nonspecific, hemoglobin hemoconcentrated at 16.0 with hematocrit normal at 46.1, platelet count normal at 249, hCG quant is appropriately elevated at 24,951. Blood type is O+. Ultrasound report from radiologist was reviewed which shows no evidence of intrauterine with a moderate amount of fluid in the cul-de-sac. At this point in time, I do feel that she has had a complete miscarriage. I discussed patient with the nurse bus matron for [facility] who she had seen earlier a few weeks ago. Patient is to follow-up tomorrow with the [facility]. She had received 2 doses of morphine here for her cramping and pain with miscarriage. I feel she be discharged safely home with follow-up. Return instructions to the emergency department were reviewed. Disposition is discharged home in stable condition. History & Record Review Discussion w/independent historian: Patient Additional record(s) reviewed:: Prior ED visit Lab Data Attestation: I reviewed the patient's lab results. Labs: Laboratory Results - last 24 hr 11/14/22 11/14/22 11/14/22 16:55 16:55 16:55 WBC 11.6 H RBC 5.07 Hgb 16.0 H Hct 46.1 MCV 90.9 MCH 31.6 MCHC 34.7 RDW Std Deviation 39.5 RDW Coeff of Antonio 11.9 Plt Count 249 MPV 12.3 H Immature Gran % (Auto) 0.400 Neut % (Auto) 82.9 H Lymph % (Auto) 9.9 L Tripp % (Auto) 6.3 Eos % (Auto) 0.1 Baso % (Auto) 0.4 Absolute Neuts (auto) 9.6 H Absolute Lymphs (auto) 1.15 Nucleated RBC % 0 HCG, Quant 20999 H Blood Type O POSITIVE Radiography Diagnostic Testing: Clinical Impression(s) from Imaging Studies Obstetrics Ultrasound 11/14/22 16:29 IMPRESSION: There is NO intrauterine There is a moderate amount of fluid in the cul de sac. There are no adnexal masses. Electronically Signed: Usman Bianchi MD at 20:12 EDT , Discharge Plan Triage Chief Complaint: Female C/O ED Provider: Kahlil Montoya Dx/Rx/DC Orders Clinical Impression: Complete miscarriage, Pelvic pain Instructions: ED Miscarriage Spontaneous Prescriptions: No Action C-José Manuel DHA 28 mg iron-1 mg -200 mg capsule 1 cap PO DAILY Qty: 90 4RF sertraline [Zoloft] 50 mg tablet 50 mg PO DAILY Qty: 90 2RF Primary Care Provider: Care Physician,No Primary Referrals: Peyton Laurent DO [Med Staff - Active Staff] - 1 Day Care Physician,No Primary [Primary Care Provider] - Activity Restrictions/Additional Instructions: Follow-up with the [facility] tomorrow at [place]. Call them first thing in the morning, or they may contact you to tell you when to arrive at the office. Return with increased bleeding, new or worsening symptoms. Disposition Disposition: Home, Self Care
[2022-11-14] MEDS: Morphine 4 MG/ML Syringe IV ×2 (16:51→17:52)
[2022-11-14] MEDS: Ondansetron 4 MG/2 ML Vial IV (16:51)
[2022-11-14] MEDS: 0.9% Normal Saline 1,000 ML 1000 ML IV (16:51)
[2022-11-14 17:05] LABS: Absolute Lymphocyte Count 1.15 X10^3/uL (0.83-4.51); Absolute Neutrophil Count 9.6 X10^3/uL (2.0-7.7); Basophil# 0.05 X10^3/uL; Basophil% 0.4 % (0-1); Eosinophil# 0.01 X10^3/uL; Eosinophils% 0.1 % (0-5); Hematocrit 46.1 % (37-47); Lymphocyte # 1.15 X10^3/ul (0.83-4.51); Lymphocyte % 9.9 % (19-41); Mean Corp Hgb Conc 34.7 g/dL (32-36); Mean Corpuscular Hgb 31.6 pg (27.0-32.0); Mean Corpuscular Volume 90.9 fL (81-99); Mean Platelet Vol. 12.3 fl (6.2-12.0); Monocyte# 0.73 X10^3/uL; Monocyte% 6.3 % (0-10); NRBC Flagged by Analyzer 0 % (0-5); Neutrophil # 9.57 X10^3/uL (2.7-7.7); Neutrophil % 82.9 % (47-70); Platelet Count 249 K/mm3 (150-450); RBC Distribution Width CV 11.9 % (11.6-14.6); RBC Distribution Width SD 39.5 fl (35.1-43.9); Red Blood Count 5.07 M/mm3 (4.2-5.4); White Blood Count 11.6 K/mm3 (4.4-11.0)
[2022-11-14 17:59] VITALS: BP 110/72; PULSE 78; RESP 14; O2SAT 99
[2022-11-14 18:04] LABS: hCG Titer Quant., Serum 24951 mIU/mL (1-3)
[2022-11-14 20:45] VITALS: RESP 18
--- NOTE | 2022-11-14 21:39 | POC_PTH ---
PATIENT: TORIE ROSE LOC: ED U#:[id number] AGE/SX: 27/F ROOM: RE11/14/[address]: Kahlil Montoya MD : 1995 BED: DIS: 11/14/2022 SPEC #: [id number] RECD: 11/15/22 08:42 STATUS: YVROSE CELSA #: [id number] SYLVIA: 11/14/22 21:[address]: Kahlil Montoya DEPT: SURGICAL PATHOLOGY RECD BY: Ansley Freitas ENTERED: 11/15/22 08:43 SP TYPE: PROD CONC OTHR DR: No Primary Care Phys Tissues: Product of conception, NOS Procedures: Surgery Specimen Level IV HEADER OPERATION: Not noted PRE-OP DIAGNOSIS: demise, 5 weeks TISSUE SUBMITTED: demise MICROSCOPIC DIAGNOSIS demise tissue, biopsy: Chorionic villi. Rare tissue. See comment. AM:luc 11/16/2022 COMMENT The specimen is consistent with products of conception. Clinical correlation is suggested. MICROSCOPIC DESCRIPTION Slides are reviewed. GROSS DESCRIPTION Received is one container labeled with the patient's name and not further designated. The specimen consists of a piece of brady soft tissue measuring 2.5 x 2.0 x 0.7 cm. The specimen consists of a sac-like structure. No obvious tissue is identified. The specimen is serially sectioned and submitted entirely in two cassettes. / JOSE:luc 11/15/2022 TC:5 CPT: 82608
[2022-11-14 21:47] LABS: Pathology Specimen OB SEE PATHOLOGY REPORT
== END 2022-11-14 21:15 | disposition home or self-care (01) ==
PROVIDERS: Emergency Provider Emergency Medicine; Visit Provider Emergency Medicine
DX: O03.9 Complete or unspecified spontaneous abortion without complication (principal); R10.2 Pelvic and perineal pain; F17.290 Nicotine dependence, other tobacco product, uncomplicated
CPT/HCPCS: 76817; 84702; 85025; 86900; 86901; 88305; 96361; 96374; 96375; 96376; 99283; J7030; A4216; J2405

== ENCOUNTER 2023-04-22 01:08 | Emergency (ER) | payer OTHER, MEDICAID, SELFPAY ==
[2023-04-22 01:09] VITALS: BP 126/90; PULSE 71; RESP 15; TEMP 36.5; O2SAT 98; BMI 24.9
--- NOTE | 2023-04-22 01:22 | EX.ED.VIS.UR ---
HPI HPI - URI History of Present Illness Chief Complaint: Sore Throat Informant: patient Onset/Context/Timing Onset: Weeks (1) Context: Gradual Onset Timing: Continuous Quality: Tightness, aching Location: Throat Worsened by: Swallowing Relieved by: - (Drinking warm liquids) Associated Symptoms Associated Symptoms: Positive for Nasal Congestion, Headache, Sinus Pressure, Diarrhea, Shortness of Breath, Chest Pain and Productive Cough; Negative for Myalgias, Nausea, Vomiting, Nonproductive cough or Hemoptysis Narrative Narrative: Patient presents with a sore throat and cough that has been getting worse over the past week. Patient describes her throat pain as tightness and aching. Patient states it is mainly in her throat. Patient states it is worse when she swallows. Patient states it is better when she is able to drink warm liquids. Patient admits to some nasal congestion and a headache. Patient also admits to some sinus pressure. Patient states she is coughing up some yellow sputum. Patient denies any fevers but admits to some subjective chills. ROS ROS ED Constitutional Constitutional ED: Reports chills and subjective; Denies fever(s) Eyes Eyes: Denies blurry vision or change in vision ENT ENT ED: Reports rhinorrhea and sore throat Cardiovascular Cardiovascular: Reports chest pain; Denies palpitations Respiratory/Chest Respiratory/Chest: Reports cough, dyspnea and sputum Gastrointestinal Gastrointestinal: Reports diarrhea; Denies nausea or vomiting Genitourinary Genitourinary ED: Denies dysuria or hematuria Musculoskeletal Musculoskeletal: Denies back pain or neck pain Integumentary Denies abscess or rash Neurologic Neurologic: Reports headache(s); Denies weakness Allergic/Immunologic Allergic/Immunologic ED: Denies mouth swelling or urticaria [facility] Medical History ADD (attention deficit disorder) GBS (group B Streptococcus carrier), +RV culture, currently Seasonal affective disorder Home Medications copper 380 square mm intrauterine device (ParaGard T 380A) 1 device intrauterine ONCE 01/30/23 [History Last Taken Unknown] fluoxetine 20 mg tablet 20 mg PO DAILY #90 tabs 01/30/23 [Rx Last Taken Unknown] Allergy/AdvReac Type Severity Reaction Status Date / Time No Known Allergies Allergy Verified 04/22/23 01:15 Family History Grandfather Diabetes Grandfather CAD (coronary artery disease) Surgical History Bilateral congenital qgmfwc-igjkmhw-glnvh reflux Social History adopted: No household members: significant other and family current occupational status: unemployed Smoking Status: Current every day smoker tobacco type: e-cigarettes alcohol intake: former details: none in substance use type: does not use and other details: Had vaped but stopped. caffeine: No what type of physical activity do you participate in: other details: pilates frequency: 5-6 times per week EXAM Physical Exam Const Vital Signs: 04/22/23 01:09 Temperature 97.7 F L Temperature Source Temporal Pulse Rate 71 Respiratory Rate 15 Blood Pressure 126/90 H Blood Pressure Mean 102 Pulse Ox 98 Oxygen Delivery Method Room Air Positive well nourished and well developed General Appearance ED: well developed and NAD HEENT Reports moist mucous membranes Throat: posterior oropharynx abnormal Positive for cobblestoning; Negative for erythema or exudates Neck supple, no meningeal signs and no JVD Resp normal respiratory effort and clear to auscultation bilaterally Cardio Rate: regular rate GI non-tender and non-distended Palpation: soft Neuro oriented x3, CN's II-XII intact bilaterally and no sensory deficits noted Sensorium / Orientation: alert Motor Exam: strength 5/5 throughout Psych mental status grossly normal MDM MDM MDM Narrative Medical decision making narrative: Differential diagnosis includes viral upper respiratory infection, viral pharyngitis, strep pharyngitis, and pneumonia. Chest x-ray will be obtained to assess for pneumonia. Rapid strep will be obtained to assess for strep pharyngitis. Radiography Chest X-Ray - ED: 2 View, Read by ED Physician, Read by Radiologist and No Acute Disease Diagnostic Testing: Clinical Impression(s) from Imaging Studies Chest X-Ray 04/22/23 02:11 IMPRESSION: No evidence of cardiopulmonary disease. Electronically Signed: Mahendra Felton DO at 2:36 EST , Discharge Plan Triage Chief Complaint: Sore Throat ED Provider: Yung Lyle Dx/Rx/DC Orders Clinical Impression: Viral upper respiratory tract infection Instructions: ED URI, Viral, No Abx (Adult) Prescriptions: No Action ParaGard T 380A 380 square mm intrauterine device 1 device intrauterine ONCE Rx Instructions: as a single dose fluoxetine 20 mg tablet 20 mg PO DAILY Qty: 90 3RF Rx Instructions: administer in the morning and at noon/midday Primary Care Provider: Yung Da Silva Referrals: Yung Da Silva MD [Primary Care Provider] - 5-7 Days Care Physician,No Primary [Non-Staff] - Disposition Disposition: Home, Self Care
--- NOTE | 2023-04-22 02:11 | RAD_ITS ---
INDICATION: Cough EXAMINATION/TECHNIQUE: X-RAY - XR Chest 2 Views COMPARISON: None. FINDINGS: LINES/DEVICES: None. LUNGS: No consolidation or evidence of an effusion. No evidence of edema or a pneumothorax. MEDIASTINUM AND CARDIOVASCULAR STRUCTURES: Cardiac silhouette is normal in size and contour. Mediastinum is unremarkable. BONES AND SOFT TISSUES: No acute abnormality. RAD/Chest PA and Lateral IMPRESSION: No evidence of cardiopulmonary disease. Electronically Signed: Mahendra Felton DO at 2:36 EST ,
== END 2023-04-22 03:06 | disposition home or self-care (01) ==
PROVIDERS: Emergency Provider Emergency Medicine; PCP Family Medicine; Visit Provider Emergency Medicine
DX: J06.9 Acute upper respiratory infection, unspecified (principal); F17.290 Nicotine dependence, other tobacco product, uncomplicated
CPT/HCPCS: 71046; 87880; 99282

== ENCOUNTER → 2024-06-23 | Outpatient (CLI) | payer MEDICAID, SELFPAY ==
[2024-06-23 17:23] LABS: Absolute Lymphocyte Count 1.73 X10^3/uL (0.83-4.51); Absolute Neutrophil Count 4.9 X10^3/uL (2.0-7.7); Basophil# 0.06 X10^3/uL; Basophil% 0.8 % (0-1); Eosinophil# 0.13 X10^3/uL; Eosinophils% 1.7 % (0-5); Hematocrit 39.5 % (37-47); Hemoglobin 12.9 g/dL (12.0-15.0); Lymphocyte # 1.73 X10^3/ul (0.83-4.51); Lymphocyte % 22.8 % (19-41); Mean Corp Hgb Conc 32.7 g/dL (32-36); Mean Corpuscular Hgb 29.4 pg (27.0-32.0); Mean Platelet Vol. 11.9 fl (6.2-12.0); Monocyte# 0.72 X10^3/uL; Monocyte% 9.5 % (0-10); NRBC Flagged by Analyzer 0 % (0-5); Neutrophil # 4.92 X10^3/uL (2.7-7.7); Neutrophil % 64.8 % (47-70); Platelet Count 325 K/mm3 (150-450); RBC Distribution Width CV 13.7 % (11.6-14.6); RBC Distribution Width SD 45.1 fl (35.1-43.9); Red Blood Count 4.39 M/mm3 (4.2-5.4); White Blood Count 7.6 K/mm3 (4.4-11.0)
[2024-06-23 17:29] LABS: Alanine Aminotransfer ALT/SGPT 25 U/L (13-56); Cholesterol 158 mg/dL (200); Creatinine, Serum 0.62 mg/dL (0.55-1.02); EST Glomerular Filtration Rate 123 mL/min (>60); Est Glom Filt Rate - Afr Amer 149 mL/min (>60); High Density Lipoprotein 64 mg/dL; Triglycerides 121 mg/dL; Very Low Density Lipoprotein 24 mg/dL (5-40)
[2024-06-25 22:06] LABS: Chlamydia By Nucleic Acid AMP Negative (Negative); Gonococcus By Nucleic Acid AMP Negative (Negative); HPV APTIMA, High Risk Negative (Negative)
== END | disposition home or self-care (01) ==
LOC: BWCLAB 15:35
PROVIDERS: Nurse Practitioner Women's Health; PCP Family Medicine; Referring Provider Family Medicine; Visit Provider Family Medicine
DX: F32.81 Premenstrual dysphoric disorder (principal); N89.8 Other specified noninflammatory disorders of vagina; Z12.4 Encounter for screening for malignant neoplasm of cervix

== ENCOUNTER → 2024-10-28 | Outpatient (CLI) | payer MEDICAID, SELFPAY ==
[2024-10-28 12:06] LABS: Absolute Lymphocyte Count 1.33 X10^3/uL (0.83-4.51); Absolute Neutrophil Count 6.7 X10^3/uL (2.0-7.7); Basophil# 0.04 X10^3/uL; Basophil% 0.4 % (0-1); Eosinophil# 0.15 X10^3/uL; Eosinophils% 1.7 % (0-5); Hematocrit 40.2 % (37-47); Hemoglobin 13.5 g/dL (12.0-15.0); Lymphocyte # 1.33 X10^3/ul (0.83-4.51); Lymphocyte % 14.9 % (19-41); Mean Corp Hgb Conc 33.6 g/dL (32-36); Mean Corpuscular Hgb 31.8 pg (27.0-32.0); Mean Corpuscular Volume 94.6 fL (81-99); Monocyte# 0.69 X10^3/uL; Monocyte% 7.8 % (0-10); NRBC Flagged by Analyzer 0 % (0-5); Neutrophil # 6.65 X10^3/uL (2.7-7.7); Neutrophil % 74.8 % (47-70); Platelet Count 309 K/mm3 (150-450); RBC Distribution Width CV 14.6 % (11.6-14.6); RBC Distribution Width SD 50.1 fl (35.1-43.9); Red Blood Count 4.25 M/mm3 (4.2-5.4); White Blood Count 8.9 K/mm3 (4.4-11.0)
[2024-10-28 13:03] LABS: Thyroid Stim Hormone (TSH) 0.922 uIU/mL (0.300-4.200)
== END | disposition home or self-care (01) ==
LOC: BWCLAB 11:53
PROVIDERS: PCP Family Medicine; Referring Provider Obstetrics & Gynecology; Visit Provider Obstetrics & Gynecology
DX: Z97.5 Presence of (intrauterine) contraceptive device (principal)
CPT/HCPCS: 36415; 84439; 84443; 85025

== ENCOUNTER → 2024-10-31 | Outpatient (CLI) | payer MEDICAID, SELFPAY ==
--- NOTE | 2024-10-31 15:28 | US_ITS ---
PROCEDURE: PELVIC W/ TRANSVAGINAL 10/31/2024 REASON FOR EXAM: HEAVY BLEEDING TECHNIQUE: Transabdominal and transvaginal pelvic ultrasound. Color doppler analysis of the ovaries. COMPARISON: None. FINDINGS: Measurements: Uterus: 6.9 x 3.9 x 5.3 cm for volume of 74.9 mL Endometrial Thickness: 6 mm Right Ovary: 2.8 x 1.4 x 2.1 cm for volume of 4.2 mL . Left Ovary: 3.4 x 2.0 x 2.2 cm for volume of 7.6 mL Uterus: Retroverted. Normal contour and myometrial echotexture. Endometrium: Normal echotexture. Tip of the intrauterine device is at the fundal end of the endometrium. Right ovary: Normal size and echotexture. Left ovary: Normal size and echotexture. Dominant follicle measuring 2.0 cm. Cul-de-sac: No free intraperitoneal fluid identified. DOPPLER: Color Doppler: Normal color flow doppler signal at both ovaries. US/Pelvic w/ Transvaginal IMPRESSION: Unremarkable pelvic ultrasound, with appropriate positioning of the intrauterin e device. Reading Location: [id number]
== END | disposition home or self-care (01) ==
LOC: OPUS 15:24 → US 15:28
PROVIDERS: PCP Family Medicine; Referring Provider Obstetrics & Gynecology; Visit Provider Obstetrics & Gynecology
DX: N92.6 Irregular menstruation, unspecified (principal)
CPT/HCPCS: 76830; 76856

== ENCOUNTER → 2024-11-17 | Outpatient (CLI) | payer MEDICAID, SELFPAY ==
[2024-11-17 18:41] LABS: Thyroid Stim Hormone (TSH) 0.656 uIU/mL (0.300-4.200)
[2024-11-17 18:43] LABS: Rheumatoid Factor < 10.0 IU/mL (<15)
[2024-11-19 14:08] LABS: ANTINUCLEAR ANTIBODIES DIRECT Negative (Negative)
[2024-11-19 16:09] LABS: Anti-Thyroglobulin AB < 1.0 IU/mL (0.0-0.9); Thyroglobulin, Serum Qt. 27.6 ng/mL (1.5-38.5); Thyroid Peroxidase AB 13 IU/mL (0-34)
== END | disposition home or self-care (01) ==
LOC: MFPLAB 16:34
PROVIDERS: PCP Family Medicine; Referring Provider Family Medicine; Visit Provider Family Medicine
DX: R79.89 Other specified abnormal findings of blood chemistry (principal)
CPT/HCPCS: 36415; 84432; 84439; 84443; 84481; 86038; 86376; 86431; 86800

== ENCOUNTER 2025-03-02 09:46 | Emergency (ER) | payer MEDICAID, SELFPAY ==
[2025-03-02 09:46] VITALS: BP 136/125; PULSE 103; RESP 16; TEMP 36.2; O2SAT 100; BMI 21.4
[2025-03-02] MEDS: 0.9% Normal Saline (1000mL) 1,000 ML 999 ML IV (10:27)
[2025-03-02 10:31] LABS: Mucous, Urine 0 SEEN /hpf (<or=2+)
[2025-03-02 10:35] LABS: Color, Urine Yellow (Yellow); Glucose, Dipstick Normal (Normal); Hematocrit 42.4 % (37-47); Hemoglobin 14.8 g/dL (12.0-15.0); Immature Granulocytes Count 0.020 X10^3/uL (0.0-0.0); Ketone-Dipstick Negative (Negative); Leukocyte Esterase-Dipstick 100 /ul (Negative); Mean Corp Hgb Conc 34.9 g/dL (32-36); Mean Corpuscular Volume 94.6 fL (81-99); Mean Platelet Vol. 10.8 fl (6.2-12.0); NRBC Flagged by Analyzer 0 % (0-5); Nitrite-Dipstick Negative (Negative); Occult Blood-Urine 10 /ul (Negative); Platelet Count 277 K/mm3 (150-450); Protein-Dipstick 15 mg/dl (Negative); RBC Distribution Width CV 12.7 % (11.6-14.6); RBC Distribution Width SD 44.1 fl (35.1-43.9); Red Blood Count 4.48 M/mm3 (4.2-5.4); Specific Gravity, Urine 1.010 (1.002-1.030); Urine Bilirubin Dipstick Negative (Negative); White Blood Count 8.9 K/mm3 (4.4-11.0)
[2025-03-02 10:43] LABS: Red Blood Cells-Urine 0-5 SEEN /hpf (0-5); Squamous Epithelial Cells - UA 0-5 SEEN /hpf (5-10)
[2025-03-02 10:58] LABS: AST(SGOT) 21 U/L (<=31); Alanine Aminotransfer ALT/SGPT 18 U/L (<=34); Albumin, Serum 4.5 g/dL (3.5-5.0); Alkaline Phosphatase 117 U/L (35-104); Anion Gap 10 (5-15); BUN 7 mg/dL (4-19); BUN/Creat Ratio 10.5 RATIO (10-20); Calcium,Total 9.3 mg/dL (7.6-11.0); Carbon Dioxide 26.1 mmol/L (21.0-32.0); Chloride 101 mmol/L (98-108); Estimated Creatinine Clearance 98.10 ml/min (50-250); Globulin 2.9 g/dL (2.2-4.2); Glucose 128 mg/dL (70-99); Lipase 17 U/L (13-75); Potassium 3.7 mmol/L (3.3-5.1)
[2025-03-02 11:03] LABS: Internal QC Validated? YES +Cl - CLEAR BKGD; Pregnancy, Serum, hCG Quali. NEGATIVE Negative; Record Kit Lot#, Serum Preg. 0000964736
--- NOTE | 2025-03-02 11:40 | CT_ITS ---
PROCEDURE: ABDOMEN/PELVIS W IV CONT ONLY 03/02/2025 REASON FOR EXAM: FLANK PAIN R, ABD PAIN History of bilateral vesicoureteral reflux. TECHNIQUE: Procedure Code: [id number] Modality: CT Procedure: ABDOMEN/PELVIS W IV CONT ONLY Coronal and Sagittal reconstruction series were provided. CONTRAST: Isovue-300 VOLUME: 100 mL One or more dose reduction techniques were used (e.g., Automated exposure control, adjustment of the mA and/or kV according to patient size, use of iterative reconstruction technique. RADIATION DOSE SUMMARY: CTDlvol: 12.6 mGy DLP: 265.86 mGycm COMPARISON: Prior study dated September 24, 2022. FINDINGS: Lung bases: The lung bases are clear. Liver: Normal size. No mass. Gallbladder: Questionable sludge or tiny gallstones along the dependent portion of the gallbladder lumen. Correlation with ultrasound recommended if clinically indicated. Spleen: Normal size. Pancreas: Normal size without evidence of mass surrounding inflammation or ductal dilation. Adrenals: Unremarkable Kidneys: Normal renal sizes. No hydronephrosis. Bladder: Unremarkable Reproductive Organs: There is a 2.1 cm cyst in the left ovary. IUD is seen within the uterus. Small follicles are seen in the right ovary. 4.8 cm x 3.6 cm well-defined rounded cystic lesion seen in the region of the cul-de-sac abutting the sacrum. This is unchanged. Sonographic correlation recommended for further evaluation. Bowel: Unremarkable Appendix: Unremarkable Lymph nodes: Unremarkable. Vasculature: The abdominal aorta and IVC are normal. Peritoneum / Retroperitoneum: Unremarkable Bones: Unremarkable CT/Abdomen/Pelvis W IV Cont ONLY IMPRESSION: Questionable tiny gallstones or sludge along the dependent portion the gallblad sharlene lumen. 2.1 cm cyst in the left ovary. IUD is seen within the endometrium. There is a 4.8 cm 3.6 cm well-defined rounded cystic lesion in the region of th e cul-de-sac abutting the sacrum. This is unchanged. Pelvic sonogram recommended for further evaluation. Reading Location: [place] [id number]
--- NOTE | 2025-03-02 12:24 | US_ITS ---
PROCEDURE: ABDOMEN LIMITED 03/02/2025 REASON FOR EXAM: ABD PAIN, RUQ TECHNIQUE: Procedure Code: USABDL Modality: US Procedure: ABDOMEN LIMITED COMPARISON: None FINDINGS: Liver: Unremarkable Gallbladder: There is no gallbladder wall thickening or stone. A trace amount of sludge is present in the gallbladder. Common bile duct: 2.5 mm . Pancreas: Unremarkable Kidneys: The right kidney measures 10.6 cm, there is no renal stone or hydronephrosis.. US/Abdomen Limited IMPRESSION: There is no gallbladder wall thickening or stone. A trace amount of sludge is p resent in the gallbladder. Reading Location: [place]
[2025-03-02 12:46] VITALS: BP 112/81; PULSE 77; RESP 16; O2SAT 99
--- NOTE | 2025-03-02 14:46 | EX.ED.DYSGE1 ---
HPI History of Present Illness Chief Complaint: Flank Pain Narrative Narrative: Patient is a 29-year-old female with past medical history of ADD, who presents to the emergency department the chief complaint of right sided pain. She states that started a few days ago and has progressively worsened prompting her to come here to the emergency department. She states that she does have a history of kidney stones in the past and in [place] she states that they watched these and eventually they passed on their own she states that she has never had any surgical procedure for this. Patient states that she does not know if this feels like a kidney stone or not she states that she is just having pain although that she states that the time she comes to the emergency department the pain is better. [facility] Medical History GBS (group B Streptococcus carrier), +RV culture, currently Seasonal affective disorder ADD (attention deficit disorder) Home Medications ?Medication ?Instructions ?Recorded ?Last Taken ?Type copper 380 square mm intrauterine 1 device intrauterine ONCE 01/30/23 Unknown History device (ParaGard T 380A) dextroamphetamine-amphetamine 20 20 mg PO DAILY 08/02/23 Unknown History mg tablet (Adderall) dextroamphetamine-amphetamine ER 25 mg PO DAILY 08/02/23 Unknown History 25 mg 24hr capsule,extend release (Adderall XR) fluoxetine 20 mg tablet 20 mg PO DAILY #90 tabs 04/29/24 Unknown Rx megestrol 20 mg tablet 20 mg PO BID #14 tabs 10/27/24 Unknown Rx cephalexin 500 mg capsule 500 mg PO BID #10 caps 03/02/25 Unknown Rx Allergy/AdvReac Type Severity Reaction Status Date / Time No Known Allergies Allergy Verified 10/28/24 11:17 Family History Grandfather Diabetes Grandfather CAD (coronary artery disease) Surgical History Bilateral congenital vdjzyg-waksxka-bgady reflux Social History adopted: No household members: significant other and family current occupational status: unemployed Smoking Status: Current every day smoker tobacco type: e-cigarettes alcohol intake: former details: none in substance use type: does not use and other details: Had vaped but stopped. caffeine: No what type of physical activity do you participate in: none ROS ROS ED ROS Narrative Constitutional: Denies any fevers, chills, headaches Eyes: Denies change in vision double vision blurry vision Cardiovascular: Denies chest pain or palpitations Respiratory: Denies coughing wheezing shortness of breath Abdomen: Complains of right sided abdominal pain as noted above denies nausea vomit diarrhea : Denies any urinary symptoms Neurological: Denies any numbness, weakness, tingling Musculoskeletal: Denies back pain Skin: Denies any rashes or lesions EXAM Physical Exam Narrative Exam Narrative: General: Patient is lying in bed rest comfortably did not appear to be in acute distress Head: Atraumatic, normocephalic Eyes: PERRL bilaterally, EOMI bilateral, no conjunctival injection noted Neck: Soft, supple, trachea midline Cardiovascular: Regular rate and rhythm no murmurs gallops rubs noted Respiratory: Clear to auscultation bilaterally no rales rhonchi or wheezes noted Abdomen: Soft, nondistended, tenderness to palpation in the right upper quadrant, right lower quadrant no rebound or guarding on exam Musculoskeletal: No CVA tenderness noted on exam, no tenderness to palpation midline of the thoracolumbar spine Extremities: +5/5 strength noted in the bilateral lower extremities, radial pulses +2/4 in the bilateral extremities, no pedal edema exam Neurological: Patient following commands knew that she was at [facility] year is 2024 Skin: Warm, dry, intact no rashes or lesions noted Const Vital Signs: 03/02/25 09:46 03/02/25 12:46 Temperature 97.2 F L Temperature Source Temporal Pulse Rate 103 H 77 Respiratory Rate 16 16 Blood Pressure 136/125 H 112/81 H Blood Pressure Mean 128 91 Pulse Ox 100 99 Oxygen Delivery Method Room Air Room Air MDM MDM MDM Narrative Medical decision making narrative: Patient is a 29-year-old female who presents to the emergency department the chief complaint of flank pain and abdominal pain. On the differential diagnose includes Melamin to UTI, pyelonephritis, urolithiasis, appendicitis, cholecystitis, pancreatitis, . Once workup is obtained reviewed she will be reevaluated. Patient's CBC reviewed showed no evidence leukocytosis white blood count normal 8.9, he was 14.8, platelet count was 277. Patient sodium is 137, potassium normal 3.7, creatinine was 0.65. Patient's AST and ALT are 21 and 18 respectively. Patient's lipase was 17, test negative. Patient's urinalysis showed 10 occult blood, 100 leukocyte esterase 10-25 white cells with 1+ bacteria. This will be sent for culture. Patient's CT on pelvis IV contrast reviewed showed questionable tiny gallstones or sludge along the dependent portion of the gallbladder lumen. The 2.1 cm left ovarian cyst. IUD is seen within the endometrium. There is a 4.8 x 3.6 well-defined round cystic lesion in the region of the cul-de-sac abutting the sacrum this is unchanged pelvic ultrasound recommended for further evaluation patient was given a hard copy of this and was advised to take this to her PATROL [facility]TAIN to follow-up on. Given that she was having tenderness palpation the right upper quadrant with the read of tiny stones and sludge noted did add a right upper quadrant ultrasound on it which showed no gallbladder wall thickening or stones there was trace amount of sludge present in the gallbladder. At 2:50 PM repeat abdominal exam was performed and her abdomen remains benign Discussed the results with the patient and she would like to go home at this point time. She will be placed on Keflex and was advised to rotate Tylenol and ibuprofen [id number] for pain control. She was advised to take the result of the CT to her PATROL [facility]TAIN to follow-up on the cyst by her sacrum. She was encouraged return if worsening symptoms and concerns. She is agreeable this plan all question concerns answered she was discharged home in stable condition. Lab Data Labs: Laboratory Results - last 24 hr 03/02/25 10:21 WBC 8.9 RBC 4.48 Hgb 14.8 Hct 42.4 MCV 94.6 MCH 33.0 H MCHC 34.9 RDW Std Deviation 44.1 H RDW Coeff of Antonio 12.7 Plt Count 277 MPV 10.8 Immature Gran % (Auto) 0.200 Neut % (Auto) 76.6 H Lymph % (Auto) 14.7 L Barry % (Auto) 7.3 Eos % (Auto) 0.6 Baso % (Auto) 0.6 Absolute Neuts (auto) 6.9 Absolute Lymphs (auto) 1.31 Nucleated RBC % 0 Sodium 137 Potassium 3.7 Chloride 101 Carbon Dioxide 26.1 Anion Gap 10 BUN 7 Creatinine 0.65 L Estim Creat Clear Calc 98.10 Est GFR (MDRD) Non-Af 124 BUN/Creatinine Ratio 10.5 Glucose 128 H Calcium 9.3 Total Bilirubin 0.82 AST 21 ALT 18 Alkaline Phosphatase 117 H Total Protein 7.4 Albumin 4.5 Globulin 2.9 Albumin/Globulin Ratio 1.5 Lipase 17 Serum , Qual NEGATIVE Urine Color Yellow Urine Clarity Sl. Cloudy Urine pH 8.0 Ur Specific [place] 1.010 Urine Protein 15 H Urine Glucose (UA) Normal Urine Ketones Negative Urine Occult Blood 10 H Urine Nitrite Negative Urine Bilirubin Negative Urine Urobilinogen Normal Ur Leukocyte Esterase 100 H Urine RBC 0-5 SEEN Urine WBC 10-25 SEEN Ur Squamous Epith Cells 0-5 SEEN Urine Bacteria 1+ Urine Mucus 0 SEEN Radiography Diagnostic Testing: Clinical Impression(s) from Imaging Studies Abdomen/Pelvis CT 03/02/25 11:40 IMPRESSION: Questionable tiny gallstones or sludge along the dependent portion the gallbladder lumen. 2.1 cm cyst in the left ovary. IUD is seen within the endometrium. There is a 4.8 cm 3.6 cm well-defined rounded cystic lesion in the region of the cul-de-sac abutting the sacrum. This is unchanged. Pelvic sonogram recommended for further evaluation. Reading Location: [id number] Abdomen Ultrasound 03/02/25 12:24 IMPRESSION: There is no gallbladder wall thickening or stone. A trace amount of sludge is present in the gallbladder. Reading Location: [place] Discharge Plan Triage Chief Complaint: Flank Pain ED Provider: Chato Llanes Dx/Rx/DC Orders Clinical Impression: Abdominal pain, Urinary tract infection, Right flank pain Prescriptions: New cephalexin 500 mg capsule 500 mg PO BID Qty: 10 0RF No Action dextroamphetamine-amphetamine [Adderall] 20 mg tablet 20 mg PO DAILY dextroamphetamine-amphetamine [Adderall XR] 25 mg capsule,extended release 24hr 25 mg PO DAILY ParaGard T 380A 380 square mm intrauterine device 1 device intrauterine ONCE Rx Instructions: as a single dose fluoxetine 20 mg tablet 20 mg PO DAILY Qty: 90 0RF megestrol 20 mg tablet 20 mg PO BID Qty: 14 0RF Primary Care Provider: Yung Da Silva Referrals: Yung Da Silva MD [Primary Care Provider, Family Practice] Activity Restrictions/Additional Instructions: Show the CT report to your PATROL CAPTAIN so they can order the ultrasound to follow-up on the cystic lesion that was found. Take the antibiotics that was sent to your pharmacy for your urinary tract infection. Return with worsening symptoms or other concerns. Use Tylenol and ibuprofen [id number] for mild to moderate pain. When you do this you can take something every 3 hours for pain max dose Tylenol in 24 hours 4000 mg max dose of ibuprofen in 24 hours 3200 mg. Print Language: Nepali Disposition Disposition: Home, Self Care
[2025-03-02 15:08] VITALS: BP 114/82; PULSE 81; RESP 16; TEMP 36.2; O2SAT 98
== END 2025-03-02 15:15 | disposition home or self-care (01) ==
PROVIDERS: Emergency Provider Emergency Medicine; PCP Family Medicine; Visit Provider Emergency Medicine
DX: R10.9 Unspecified abdominal pain (principal); N39.0 Urinary tract infection, site not specified; N83.202 Unspecified ovarian cyst, left side; F17.290 Nicotine dependence, other tobacco product, uncomplicated; Q62.7 Congenital vesico-uretero-renal reflux; F33.9 Major depressive disorder, recurrent, unspecified; F98.8 Other specified behavioral and emotional disorders with onset usually occurring in childhood and adolescence
CPT/HCPCS: 74177; 76705; 80053; 81001; 83690; 84703; 85025; 87077; 87086; 87088; 87186; 96360; 96361; 99283; Q9967; A4216

== ENCOUNTER → 2025-03-09 | Outpatient (CLI) | payer MEDICAID, SELFPAY ==
--- NOTE | 2025-03-09 09:12 | US_ITS ---
PROCEDURE: PELVIC W/ TRANSVAGINAL 03/09/2025 REASON FOR EXAM: PELVIC PAIN TECHNIQUE: Procedure Code: [id number] Modality: US Procedure: PELVIC W/ TRANSVAGINAL COMPARISON: CT from 03/02/2025, ultrasound from 10/31/2024 FINDINGS: LMP 02/23/2025 Measurements: . Uterus: Measures 7.1 x 5.1 x 3.8 cm. No demonstrated fibroid. There is an IUD noted in satisfactory position within the fundal endometrium orchid hand knows it is slightly low within the lower uterine segment. Endometrium: Normal thickness at 10 mm, hyperechoic Right ovary: 3.3 x 3.0 x 2.0 cm. There is a simple 2.2 x 2.2 x 1 cm cyst. Normal color Doppler flow Left ovary: 7.0 x 4.4 x 3.8 cm. There are 2 separate cysts larger measures 3.4 cm, smaller 2.7 cm. Other: Stable complex hypoechoic cystic lesion in the posterior cul de sac which is nonvascular and unchanged from the previous CT. It is etiology is uncertain but it does not demonstrate suspicious aggressive characteristics. Mild fluid in the cul de sac, bladder distends normally US/Pelvic w/ Transvaginal IMPRESSION: IUD noted within the uterus. Complex left ovarian cysts larger measures 3.4 cm, smaller 2.7 cm, given patien t's age, no specific follow-up is needed. Simple right adnexal cyst, no specific follow-up needed. Complex 3.8 x 4.5 x 3 point cm cystic structure in the cul de sac abutting the sacrum unchanged from recent CT, its etiology is uncertain but it does not demonstrate suspicious characteristics. A short-term 3 to six-month follow-up ultrasound could be performed to assess stability Mild free fluid in the cul de sac Reading Location: [id number]
== END | disposition home or self-care (01) ==
LOC: OPUS 09:01
PROVIDERS: PCP Family Medicine; Referring Provider Obstetrics & Gynecology; Visit Provider Obstetrics & Gynecology
DX: R10.2 Pelvic and perineal pain (principal)
CPT/HCPCS: 76830; 76856

== ENCOUNTER → 2025-03-30 | Outpatient (CLI) | payer MEDICAID, SELFPAY ==
--- NOTE | 2025-03-30 13:54 | MRI_ITS ---
EXAM: PELVIS W/WO CONTRAST 03/30/2025 CLINICAL HISTORY: EVALUATE CYSTIC STRUCTURE. TECHNIQUE: Procedure Code: [id number] Modality: MR Procedure: PELVIS W/WO CONTRAST Multiplanar and multisequence images were obtained intravenous gadolinium contrast. CONTRAST: VOLUME: mL COMPARISON: Ultrasound dated 03/09/2025. FINDINGS: A well-circumscribed unilocular cystic structure measuring 3.3 x 4.4 by 4.8 cm (AP by transverse by CC) is noted in the presacral space, displacing the distal sigmoid colon anterior into the right. This cystic structure demonstrates homogeneous low T1 and high T2 signal, and abuts the sacrum. A 2nd smaller 1.5 cm cystic structure with a fluid-fluid level is noted inferior to the aforementioned cyst, and is immediately anterior to the coccyx. Multiple smaller cystic structures are noted within the bilateral adnexa, the largest on the left measures 2.7 cm, in the largest on the right measures 2.2 cm. These likely represent ovarian cysts. A couple of small nabothian cysts are seen within the cervix. An IUD is noted within the uterine cavity. Fluid is also present within the uterine cavity. Please correlate with the patient's menstrual cycle. The remainder of the pelvic contents appear unremarkable. The bone marrow signal is unremarkable. MRI/Pelvis W/WO Contrast IMPRESSION: 1. Well-circumscribed unilocular 4.8 cm cystic structure in the presacral spac e, as described above. This is consistent with the previous ultrasound. Diagnostic considerations include a tail gut cyst (re trorectal cystic hamartoma), as well as other developmental cysts including a neuro enteric cyst, and a cystic lymphangioma. An anterior sacral meningocele is less likely. A smaller 1.5 cm cyst is inferior to the aforementioned cyst, and anterior to the coccyx, likely the same etiology. 2. Bilateral adnexal cysts, as described above and compatible with ovarian cys ts. 3. IUD within the uterus. Reading Location: [id number]
== END | disposition home or self-care (01) ==
LOC: OPMRI 13:52
PROVIDERS: PCP Family Medicine; Referring Provider Obstetrics & Gynecology; Visit Provider Obstetrics & Gynecology
DX: N83.8 Other noninflammatory disorders of ovary, fallopian tube and broad ligament (principal); M79.9 Soft tissue disorder, unspecified
CPT/HCPCS: 72197; A9575

== ENCOUNTER → 2025-04-07 | Outpatient (CLI) | payer MEDICAID, SELFPAY ==
--- NOTE | 2025-04-07 08:57 | NM_ITS ---
PROCEDURE: NM/Hepatobilliary Bernardog w/Pharm Int
== END | disposition home or self-care (01) ==
PROVIDERS: PCP Family Medicine; Referring Provider Family Medicine; Visit Provider Family Medicine
DX: E34.1 Other hypersecretion of intestinal hormones (principal)
CPT/HCPCS: 78227; A9537; J2805

== ENCOUNTER → 2025-05-12 | Outpatient (CLI) | payer MEDICAID, SELFPAY ==
--- NOTE | 2025-05-12 16:12 | US_ITS ---
PROCEDURE: PELVIC W/ TRANSVAGINAL 05/12/2025 REASON FOR EXAM: CONCERN FOR IUD DISPLACED TECHNIQUE: Procedure Code: [id number] Modality: US Procedure: PELVIC W/ TRANSVAGINAL COMPARISON: 09 March 2025. FINDINGS: Uterus: The retroverted uterus measures 6.8 x 5.1 x 3.4 cm. Homogenous appearance without evidence of discrete cyst, echogenic calculi, or mass. The endometrial stripe measures 4 mm and contains an intrauterine device. Multiple simple nabothian cysts visualized in the cervix. Right ovary: The right ovary is normal in size measuring 3 x 2 x 1.6 cm. No suspicious masses. Blood flow to the adnexa is normal with arterial and venous waveforms documented. Left ovary: The left ovary is large in size measuring 5.5 x 4.7 x 2.5 cm. Dominant follicle visualized. Cyst with low level echos measuring 3.1 x 3 x 2.9 cm. O-RADS 2. Blood flow to the adnexa is normal with arterial and venous waveforms documented. No ascites. US/Pelvic w/ Transvaginal IMPRESSION: 1. No evidence of ovarian torsion. 2. Intrauterine device is in the expected location. 3. 3.1 cm left ovarian endometrioma O-RADS 2. If not surgically excised, [facility] mmend repeat ultrasound in one year for continued surveillance. Reading Location: [id number]
== END | disposition home or self-care (01) ==
LOC: US 15:52
PROVIDERS: PCP Family Medicine; Referring Provider Obstetrics & Gynecology; Visit Provider Obstetrics & Gynecology
DX: Z30.430 Encounter for insertion of intrauterine contraceptive device (principal)
CPT/HCPCS: 76830; 76856